=== PATIENT | female | born 1995 | race African-American/Black ===

== ENCOUNTER 2016-02-16 13:20 | Emergency (ER) | payer SELFPAY ==
[~2016-02-16] VITALS: Ht 154.9 cm; Wt 88.0 kg
[~2016-02-16 13:20] MED LIST: MAGICADU2 SWISH-SPIT; PROM25TA5 PO
[2016-02-16 13:23] VITALS: BP 105/72; PULSE 77; RESP 16; TEMP 97.9; O2SAT 100
[2016-02-16] MEDS ORDERED: CORT1SOL RIGHT EAR (13:50)
--- NOTE | 2016-02-16 13:50 | PD ---
HPI Chief Complaint: ENT Complaint Time Seen by Provider: 13:47 Travel History International Travel<30 days: No Contact w/Intl Traveler<30days: No Traveled to known affect area: No History of Present Illness HPI Patient comes in complaining of right ear pain ongoing for approximately 2 weeks. Describes pain as burning like in nature is worse with palpation or pressure. Patient denies any radiation of the pain. Patient is using over-the- counter eardrops as well as an ointment near the opening of the auditory canal with minimal to no relief of her symptoms. Denies any fevers, neck pain, difficulty swallowing, or known fevers. 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 SKIN: Warm and dry. HEAD: Atraumatic. Normocephalic. EYES: Pupils equal and round. EOMI. No scleral icterus. No injection or drainage. ENT: No nasal bleeding or discharge. Mucous membranes pink and moist. Mild edema and erythematous to the right auditory canal. There is reproducible pain with tugging of the right auricle and tragus. There is no foreign body noted. Tympanic membranes are pearly ortiz bilaterally. NECK: Trachea midline. No cervical lymphadenopathy. Supple. No nuclear rigidity. RESPIRATORY: No accessory muscle use. No respiratory distress. MUSCULOSKELETAL: No obvious deformities. No clubbing. No cyanosis. No edema. Full range of motion. NEUROLOGICAL: Awake and alert. No obvious cranial nerve deficits. Motor grossly within normal limits. Normal speech. PSYCHIATRIC: Appropriate mood and affect; insight and judgment normal. Data Data Last Documented VS Vital Signs Date Time Temp Pulse Resp B/P Pulse Ox O2 Delivery O2 Flow Rate FiO2 1/7/17 13:23 97.9 77 16 105/72 100 Room Air MDM Medical Decision Making Medical Screen Exam Complete: Yes Emergency Medical Condition: Yes Differential Diagnosis Otitis media, otitis externa, otalgia, other Narrative Course The patient presented with ear pain. History and examination revealed evidence of otitis externa. There was no significant swelling of the canal nor significant debris. No clinical evidence by history or evaluation to suspect meningitis and/or sepsis, nor malignant OE or mastoiditis. I discussed with the patient, diagnosis, plan of care and to follow up with the patients primary physician within the next week. The patient was discharged on otic antibiotic drops. The patient was instructed to not swim or submerge head in bath or shower , or any other activity that would allow water into canal until cleared by their physician. The patient was instructed to return if worsens in anyway, especially if increased pain, develop fever, worsening headache, neck pain or as needed. The patient agreed with plan. Patient in no obvious distress upon re-evaluation. Patient was asked if they wanted to speak to my attending, which the patient did not wish to do at this time. Any questions/concerns in reference to patient diagnosis/condition discussed and clarified prior to patient's discharge. Reinforced sheer importance of close follow up with patient's primary physician or primary care clinic. Instructed patient to return to ED immediately, if symptoms return/ worsen. Pt showed understanding of above instructions. Further instructions and recommendations were detailed in discharge paperwork. Pt ambulated without difficulty out of ED at discharge. Diagnosis Primary Impression: Otitis externa of right ear Qualified Code: H60.501 - Acute otitis externa of right ear, unspecified type Patient Instructions: General Instructions, Otitis Externa (ED) Additional Instructions: Follow-up with your primary care physician in 3-5 days for evaluation. Take all medication as prescribed. Return to the emergency department if symptoms get worse. Med/Other Pt SpecificInfo: Prescription(s) given Scripts Jcrqdjxs-Ccuqzszwp-RD Otic Drops (Cortisporin HC Otic Drops)3.5-10,000-1 Mg- Units-% Soln4 Drop RIGHT EAR QID #1 BOTTLE Ref 0 Prov:Tanisha Downing MD 02/16/16 Disposition: 01 DISCHARGE HOME Condition: Stable Tyler Portillo Feb 16, 2016 13:50
[2016-05-06] MEDS ORDERED: METR0.7528 VAGINAL (11:59)
[2016-05-06] MEDS ORDERED: PREN1CHW7 PO (11:59)
[2016-05-13] MEDS ORDERED: AZIT1POW PO (14:46)
[2016-05-13] MEDS ORDERED: TERC.4%V VAGINAL (14:46)
[2016-05-13] MEDS ORDERED: MACR100C2 PO (16:43)
[2016-05-13] MEDS ORDERED: FERRTAB2 PO (16:43)
[2016-07-22] MEDS ORDERED: [UNRECOGNIZED DRUG - CODE] PO (09:21)
[2016-07-22] MEDS ORDERED: CEPH-459 PO (11:03)
== END 2016-02-16 14:10 | disposition home or self-care (01) ==
LOC: NEPB 13:20
DX: H60.91 Unspecified otitis externa, right ear (principal); Z72.0 Tobacco use
CPT/HCPCS: 99282

== ENCOUNTER 2016-05-09 09:05 | Emergency (ER) | payer MEDICAID ==
[~2016-05-09 09:05] MED LIST changes: -MAGICADU2 SWISH-SPIT; +METR0.7528 VAGINAL; +PREN1CHW7 PO; -PROM25TA5 PO
--- NOTE | 2016-05-09 09:40 | PD ---
HPI Chief Complaint Decreased movements Date Seen: May 09, 2016 Time Seen: 09:25 (David Staples MD R1) Travel History International Travel<30 Days: No Contact w/Intl Traveler<30Days: No Known Affected Area: No (David Staples MD R1) History of Present Illness HPI Patient is a 20 year old at 23/5 weeks gestation presents to OB ED with the concern of no movements for the past day and a half. She denies any LOF or VB. Denies contractions. Denies urinary symptoms. She has no other complaints. : 2 Miscarriage: 1 (David Staples MD R1) HPI She reports she is now feeling normal movement. (Vicenta Jackson MD) History Past Medical History Medical History: Denies Significant Hx (David Staples MD R1) Obstetric History Obstetric History First resulting in IUFD at 25/6 weeks gestation induced delivery on (David Staples MD R1) Past Surgical History Surgical History: No Previous Surgery (David Staples MD R1) Family History Family History: Negative (David Staples MD R1) Social History Alcohol Use: No Tobacco Use: No Substance Abuse: No (David Staples MD R1) Allergies-Medications (Allergen,Severity, Reaction): Coded Allergies: *MDRO Multi-Drug Resistant Organism (Verified Allergy, Unknown, 05/09/16) MRSA 2013 Home Meds Active Scripts Vit W/ Ferric Phospha (Vitafol Gummies 3.33-0.333-34.8 mg)1 Chw Chw1 Chew PO DAILY #30 BOTTLE Ref 11 Prov:Yola Sánchez CNM [employer] 05/06/16 Metronidazole Vaginal Gel (Metrogel Vaginal Gel)0.75 % Gel1 Appl VAGINAL HS #1 TUBE Ref 0 Prov:Yola Sánchez CNM [employer] 05/06/16 Discontinued Scripts Dpafgzdf-Ocpdrcrrp-PD Otic Drops (Cortisporin HC Otic Drops)3.5-10,000-1 Mg- Units-% Soln4 Drop RIGHT EAR QID #1 BOTTLE Ref 0 Prov:Tanisha Downing MD 02/16/16 Review of Systems Except as stated in HPI: all other systems reviewed are Neg (David Staples MD R1) Physical Exam Narrative GENERAL: Well-nourished, well-developed patient. SKIN: Warm and dry. HEAD: Normocephalic and atraumatic. EYES: No scleral icterus. No injection or drainage. ENT: No nasal drainage noted. Mucous membranes pink. Airway patent. NECK: Supple, trachea midline. No JVD. CARDIOVASCULAR: Regular rate and rhythm without murmurs, gallops, or rubs. RESPIRATORY: Breath sounds equal bilaterally. No accessory muscle use. ABDOMEN/GI: Abdomen soft, non-tender, bowel sounds present, no rebound, no guarding Gravid to 24 weeks size GENITOURINARY: External Genitalia: [-] Cervix: [-] Dilatation: [-] Effacement: [-] Station: [-] Presentation: [-] Membranes: [-] Uterine Contractions: none FHT's: Category: I Baseline: 130s Reactive: yes Variability: mod Decels: none EXTREMITIES: No cyanosis or edema. BACK: Nontender without obvious deformity. No CVA tenderness. NEUROLOGICAL: Awake and alert. Motor and sensory grossly within normal limits. Normal speech. (David Staples MD R1) Data Data Vital Signs Reviewed: Yes (David Staples MD R1) [facility] Medical Record Reviewed: Yes Plan Patient is a 20 year old at 23/5 weeks gestation presented with concern of decreased movement. 1. IUP - Category I tracing, reassuring - No contractions on tocometer - Encouraged oral hydration - Advised to follow up at [facility] clinic for continued care wdw OB Hospitalist (David Staples MD R1) Plan patient evaluated with residents, agree with evaluation and plan. patient feeling good FM. movement precautions. PTL precautions. (Vicenta Jackson MD) Diagnosis Diagnosis: Primary Impression: Intrauterine Disposition: DISCHARGE HOME Condition: Stable Patient Instructions: General Instructions, Movement (ED) David Staples MD R1 May 09, 2016 09:40 Vicenta Jackson MD May 09, 2016 12:04
[2016-05-13] MEDS ORDERED: AZIT1POW PO (14:46)
[2016-05-13] MEDS ORDERED: TERC.4%V VAGINAL (14:46)
[2016-05-13] MEDS ORDERED: MACR100C2 PO (16:43)
[2016-05-13] MEDS ORDERED: FERRTAB2 PO (16:43)
[2016-07-22] MEDS ORDERED: [UNRECOGNIZED DRUG - CODE] PO (09:21)
[2016-07-22] MEDS ORDERED: CEPH-459 PO (11:03)
== END 2016-05-09 10:27 | disposition home or self-care (01) ==
LOC: HOBED 09:05
DX: O26.892 Other specified pregnancy related conditions, second trimester (principal); Z3A.23 23 weeks gestation of pregnancy
CPT/HCPCS: 87641; 99284

== ENCOUNTER 2016-06-12 10:21 | Emergency (ER) | payer MEDICAID ==
[~2016-06-12 10:21] MED LIST changes: +FERRTAB2 PO; -METR0.7528 VAGINAL
[2016-06-12] MEDS ORDERED: SIMETHICONE 80 MG CHEWABLE TAB CHEW ONE (11:30)
[2016-06-12] MEDS ORDERED: ONDANSETRON ODT 4 MG TAB PO ONE (11:30)
--- NOTE | 2016-06-12 11:48 | PD ---
HPI Chief Complaint abdominal pain Date Seen: June 12, 2016 Travel History International Travel<30 Days: No Contact w/Intl Traveler<30Days: No History of Present Illness HPI Ms. Jackson is a 21 yo patient of [facility] at 28 4/7 weeks who presents with abdominal cramping. Patient reports that she began having abdominal pain last night at approximately midnight; patient states that this is a diffuse/steady pain, 6-7/ 10 in severity, which is cramping in nature. Patient reports that this pain is worse in her left lower quadrant. Patient denies fever or chills. She reports some nausea this morning which is improved; no vomiting. 2 soft, normal BM this morning without presence of blood. Patient also reports cramping pain with urination. Patient reports lower back pain. Patient states that she has not eaten since the onset of her pain. Patient reports mild headache. She does not report chest pain, shortness of breath, leg swelling, or other symptoms. Patient states that her pain is gassy in nature. Patient does not report vaginal bleeding or loss of vaginal fluid. Patient does not report decreased movement. Patient sees [facility] for care. Patient states that she has had reassuring labs/ultrasound. Patient reports history of anemia for which she takes iron supplementation. : 2 Miscarriage: 1 History Past Medical History Narrative Medical Anemia Obstetric History Obstetric History demise at ~20 weeks per patient Past Surgical History Surgical History: No Previous Surgery Family History Narrative Family History Sister- DM Social History Alcohol Use: No Tobacco Use: No Substance Abuse: No Allergies-Medications (Allergen,Severity, Reaction): Coded Allergies: *MDRO Multi-Drug Resistant Organism (Verified Allergy, Unknown, 05/27/16) MRSA 2013 Home Meds Active Scripts Multi-Vit/Iron-Folic Geva-K25-Vsk C (Ferralet)90-1-0.012-120 mg Tab1 Tab PO DAILY #60 BOTTLE Ref 5 Prov:Yola Sánchez CNMP 05/13/16 Vit W/ Ferric Phospha (Vitafol Gummies 3.33-0.333-34.8 mg)1 Chw Chw1 Chew PO DAILY #30 BOTTLE Ref 11 Prov:Yola Sánchez CNMP 05/06/16 Review of Systems General / Constitutional: No: Fever Eyes: No: Blurred Vision HENT: No: Headaches Cardiovascular: No: Chest Pain or Discomfort Respiratory: No: Short of Breath Gastrointestinal: Nausea, Abdominal Pain Genitourinary: Dysuria, No: Urgency Physical Exam HR 81 BP 129/67 Narrative GENERAL: Well-nourished, well-developed patient. SKIN: Warm and dry. HEAD: Normocephalic and atraumatic. EYES: No scleral icterus. No injection or drainage. ENT: No nasal drainage noted. Mucous membranes pink. Airway patent. NECK: Supple, trachea midline. No JVD. CARDIOVASCULAR: Regular rate and rhythm without murmurs, gallops, or rubs. RESPIRATORY: Breath sounds equal bilaterally. No accessory muscle use. EXTREMITIES: No cyanosis or edema. BACK: No CVA tenderness. NEUROLOGICAL: Awake and alert. Motor and sensory function grossly within normal limits. ABDOMEN/GI: Abdomen soft, non-tender, bowel sounds present, no rebound, no guarding Gravid GENITOURINARY: External Genitalia: intact and normal in appearance Cervix: Dilatation: 0 Effacement: 0 Station: -3 Membranes: Intact Uterine Contractions: None FHT's: Category: 1 Baseline: 130 Reactive: Y Variability: Mod Decels: None Data Data Orders Vital Signs (Adult) .ON ADMISSION (06/12/16 11:18) ^ Labor Status (06/12/16 11:18) Urinalysis - C+S If Indicated (06/12/16 11:18) Ondansetron Odt (Zofran Odt) (06/12/16 11:30) Simethicone Chew (Mylicon Chew) (06/12/16 11:30) MDM Medical Record Reviewed: Yes Narrative Course / MDM 21 yo patient of [facility] at 28 4/7 weeks -Abdominal cramping; high suspicion for GI related -Dysuria -Cat 1 rhythm -No contractions on CTG -Cervix closed Plan: -Will give simethicone -Reassured patient regarding nature of pain; advised bland diet -F/U at [facility] routinely Diagnosis Diagnosis: Primary Impression: Abdominal gas pain Additional Impression: 28 weeks gestation of Disposition: 01 DISCHARGE HOME Condition: Stable Patient Instructions: Abdominal Pain in (ED), General Instructions Magrarito Mullins MD R2 June 12, 2016 11:48
[2016-06-12 11:52] LABS: BLOOD, URINE NEG (NEG); COMMENT (UR) CULT NOT INDICATED; CULTURE IF INDICATED CULT NOT INDICATED; GLUCOSE,URINE NEG (NEG); KETONE, URINE NEG (NEG); NITRITE,URINE NEG (NEG); SQUAMOUS EPITHELIAL CELL URINE 1 /hpf (0-5); URINE COLOR LIGHT-YELLOW (YELLW/STRAW)
[2016-06-12] MEDS ORDERED: SIME80CH CHEW (12:04)
[2016-07-22] MEDS ORDERED: [UNRECOGNIZED DRUG - CODE] PO (09:21)
[2016-07-22] MEDS ORDERED: CEPH-459 PO (11:03)
== END 2016-06-12 12:18 | disposition home or self-care (01) ==
LOC: HOBED 10:21
DX: O99.013 Anemia complicating pregnancy, third trimester (principal); R14.1 Gas pain; M54.5 Low back pain; D64.9 Anemia, unspecified; R11.0 Nausea; Z3A.28 28 weeks gestation of pregnancy
CPT/HCPCS: 81001; 99284

== ENCOUNTER 2016-07-28 09:10 | Emergency (ER) | payer MEDICAID ==
[~2016-07-28 09:10] MED LIST changes: +CEPH-459 PO
--- NOTE | 2016-07-28 10:14 | PD ---
HPI Chief Complaint Contractions Date Seen: Jul 28, 2016 (Mirian Wagner MD R2) Travel History International Travel<30 Days: No Contact w/Intl Traveler<30Days: No (Mirian Wagner MD R2) History of Present Illness HPI Patient is 21 year old at 35-1/7 weeks gestation who presents today for contractions. Contractions and cramping started last night and are occurring every 10 minutes. She denies any vaginal bleeding or discharge. No gush or leaking of fluid. Positive movement. care with [facility]. ( Mirian Wagner MD R2) History Past Medical History Medical History: Denies Significant Hx (Mirian Wagner MD R2) Obstetric History Obstetric History demise at 25 weeks gestation (Mirian Wagner MD R2) Past Surgical History Surgical History: No Previous Surgery (Mirian Wagner MD R2) Family History Family History: Negative (Mirian Wagner MD R2) Social History Alcohol Use: No Tobacco Use: No Substance Abuse: No (Mirian Wagner MD R2) Allergies-Medications (Allergen,Severity, Reaction): Coded Allergies: *MDRO Multi-Drug Resistant Organism (Verified Allergy, Unknown, 07/22/16) MRSA 2013 Home Meds Active Scripts Nitrofurantoin Macrocrystal 100 Mg Vbl155 Mg PO BID #14 CAP Ref 0 Prov:Mirian Wagner MD R2 07/28/16 Cephalexin (Keflex)250 Mg Hir205 Mg PO TID #21 CAP Ref 0 Prov:Vicenta Garcia 07/22/16 Multi-Vit/Iron-Folic Xpsd-M88-Cet C (Ferralet)90-1-0.012-120 mg Tab1 Tab PO DAILY #60 BOTTLE Ref 5 Prov:Yola Sánchez CNMP 05/13/16 Vit W/ Ferric Phospha (Vitafol Gummies 3.33-0.333-34.8 mg)1 Chw Chw1 Chew PO DAILY #30 BOTTLE Ref 11 Prov:Yola Sánchez CNMP 05/06/16 Discontinued Scripts Cefadroxil Liq 250 Mg/5 Ml Osyi705 Mg PO TID #105 ML Ref 0 Prov:Vicenta Garcia 07/22/16 Review of Systems Except as stated in HPI: all other systems reviewed are Neg General / Constitutional: No: Fever, Chills Eyes: No: Visual changes HENT: No: Headaches Respiratory: No: Short of Breath Gastrointestinal: Abdominal Pain Genitourinary: Pelvic Pain, No: Dysuria, Discharge, Vaginal Bleeding Musculoskeletal: No: Edema Neurologic: No: Headache Psychiatric: No: Substance Abuse (Mirian Wagner MD R2) Physical Exam Narrative GENERAL: Well-nourished, well-developed patient. SKIN: Warm and dry. HEAD: Normocephalic and atraumatic. EYES: No scleral icterus. No injection or drainage. ENT: No nasal drainage noted. Mucous membranes pink. Airway patent. NECK: Supple, trachea midline. No JVD. CARDIOVASCULAR: Regular rate and rhythm without murmurs, gallops, or rubs. RESPIRATORY: Breath sounds equal bilaterally. No accessory muscle use. ABDOMEN/GI: Abdomen soft, non-tender, bowel sounds present, no rebound, no guarding Gravid to 35 weeks size GENITOURINARY: External Genitalia: intact and normal in appearance BUS glands: normal Cervix: posterior Dilatation: 3-4 Effacement: 50 Station: -2 Presentation: vertex Membranes: intact Uterine Contractions: q3-5min FHT's: Category: I Baseline: 130 Reactive: + Variability: moderate Decels: none EXTREMITIES: No cyanosis or edema. BACK: Nontender without obvious deformity. No CVA tenderness. NEUROLOGICAL: Awake and alert. Motor and sensory grossly within normal limits. Normal speech. (Mirian Wagner MD R2) Data Data Vital Signs Reviewed: Yes Orders Vital Signs (Adult) .ON ADMISSION (07/28/16 09:59) ^ Labor Status (07/28/16 09:59) ^ Non Stress Test (07/28/16 09:59) ^ Hydration (07/28/16 09:59) Urinalysis - C+S If Indicated (07/28/16 09:59) (Mirian Wagner MD R2) MDM Medical Record Reviewed: Yes Narrative Course / MDM 21 year old at 35-1/7 weeks gestation. 1. IUP- Category I tracing, reassuring. 2. Contractions- Possible labor, will continue to monitor for cervical change. IV LR. josew Dr. Haddox Addendum: Variable heart rate deceleration for 45 seconds down to the 60's was noted. Otherwise Category I tracing. BPP 8/8. Patient was kept for another 2 hours of heart tracing and tracing was reassuring with continued Category I tracing. UA significant for moderate bacteria and leukocyte esterace. Will treat acute cystitis with Macrobid 100mg PO BID x 7 days. Patient is discharge to home. Follow-up with [facility]. (Mirian Wagner MD R2) Diagnosis Diagnosis: Primary Impression: contractions Additional Impression: Acute cystitis during in third trimester Disposition: 01 DISCHARGE HOME Condition: Stable Scripts Nitrofurantoin Macrocrystal 100 Mg Uns801 Mg PO BID #14 CAP Ref 0 Prov:Mirian Wagner MD R2 07/28/16 Collaborating MD Comments Patient seen and examined multiple times today. Discussed care with patient and agree with discharge given the reassuring status of the baby and 8/8 BPP ( Meg Sanders MD) Mirian Wagner MD R2 Jul 28, 2016 10:14 Meg Sanders MD Jul 29, 2016 08:29
[2016-07-28] MEDS ORDERED: LACTATED RINGER'S 1000 ML INJ 1,000 ML IV SCH (11:00)
[2016-07-28 13:44] LABS: BACTERIA, URINE MOD /hpf; BLOOD, URINE NEG (NEG); GLUCOSE,URINE NEG (NEG); KETONE, URINE NEG (NEG); MUCUS URINE FEW /lpf (OCC); NITRITE,URINE NEG (NEG); PH, URINE 6.5 (5.0-8.5); SQUAMOUS EPITHELIAL CELL URINE 2 /hpf (0-5); URINE COLOR YELLOW (YELLW/STRAW)
[2016-07-28 13:45] LABS: COMMENT (UR) CULTURE INDICATED; CULTURE IF INDICATED CULTURE INDICATED
[2016-07-28] MEDS ORDERED: NITR1CAP36 PO (14:41)
== END 2016-07-28 14:56 | disposition home or self-care (01) ==
LOC: HOBED 09:10
DX: O26.893 Other specified pregnancy related conditions, third trimester (principal); O23.13 Infections of bladder in pregnancy, third trimester; R10.30 Lower abdominal pain, unspecified; Z3A.35 35 weeks gestation of pregnancy
CPT/HCPCS: 59025; 76816; 76819; 81001; 87086

== ENCOUNTER 2016-08-14 09:24 | Inpatient (IN) | payer MEDICAID ==
[2016-08-14] VITALS (52 sets, daily range): BP systolic 103–140; BP diastolic 41–103; PULSE 49–130; RESP 16–18; TEMP 98–98.3; O2SAT 94–100
[2016-08-14] MEDS ORDERED: LACTATED RINGER'S 1000 ML INJ 1,000 ML IV PRN (09:57)
[2016-08-14] MEDS ORDERED: MINERAL OIL 10 ML VIAL TOPICAL PRN (10:00)
[2016-08-14] MEDS ORDERED: SODIUM CHLORID 0.9% 500 ML INJ 500 ML IV PRN (10:00)
[2016-08-14] MEDS ORDERED: OXYTOCIN 30 UNITS-500ML PREMIX 500 ML IV ONE (10:00)
[2016-08-14] MEDS ORDERED: LIDOCAINE HCL 1% 50 ML VIAL I-DERMAL PRN (10:00)
[2016-08-14] MEDS ORDERED: LIDOCAINE HCL 1% 50 ML VIAL INFIL PRN (10:00)
[2016-08-14] MEDS ORDERED: CITRIC ACID-SODIUM CITRATE LIQ 30 ML UDC PO SCH (10:00)
[2016-08-14] MEDS ORDERED: SODIUM CHLOR 0.9% 1000 ML INJ 1,000 ML IV PRN (10:17)
--- NOTE | 2016-08-14 10:36 | HHI.HP ---
History & Physical H&P HPI HPI Chief Complaint Contractions Date Seen: Aug 14, 2016 Time Seen: 09:50 Travel History International Travel<30 Days: No Contact w/Intl Traveler<30Days: No History of Present Illness HPI 21-year-old at 37/4 weeks gestation presenting with contractions. Contractions started about 6 AM this morning and were about every 5-6 minutes apart. They're very intense, but after about an hour they ceased. Then an hour after stopping, contractions resumed and were again intense and 5-6 minutes apart. Patient was 3-4 cm dilated a few days ago. She denies vaginal bleeding, leakage of fluid/rupture of membranes, and she feels normal movement. Denies chest pain, shortness of breath, nausea/vomiting, dysuria. History (Limited) History Past Medical History Medical History: Denies Significant Hx Obstetric History Obstetric History , previous delivered vaginally Past Surgical History Surgical History: No Previous Surgery Family History Family History: Negative Social History Alcohol Use: No Tobacco Use: No Substance Abuse: No Allergies-Medications Allergies-Medications (Allergen,Severity, Reaction): Coded Allergies: *MDRO Multi-Drug Resistant Organism (Verified Allergy, Unknown, 07/22/16) MRSA 2013 Home Meds Active Scripts Cephalexin (Keflex)250 Mg Ngg839 Mg PO TID #21 CAP Ref 0 Prov:Vicenta Garcia 07/22/16 Multi-Vit/Iron-Folic Isfu-P00-Oeu C (Ferralet)90-1-0.012-120 mg Tab1 Tab PO DAILY #60 BOTTLE Ref 5 Prov:Yola Sánchez CNMP 05/13/16 Vit W/ Ferric Phospha (Vitafol Gummies 3.33-0.333-34.8 mg)1 Chw Chw1 Chew PO DAILY #30 BOTTLE Ref 11 Prov:Yola Sánchez CNM [facility] 05/06/16 ROS Review of Systems Except as stated in HPI: all other systems reviewed are Neg Physical Exam Physical Exam Narrative GENERAL: Well-nourished, well-developed patient. SKIN: Warm and dry. HEAD: Normocephalic and atraumatic. EYES: No scleral icterus. No injection or drainage. ENT: No nasal drainage noted. Mucous membranes pink. Airway patent. NECK: Supple, trachea midline. No JVD. CARDIOVASCULAR: Regular rate and rhythm without murmurs, gallops, or rubs. RESPIRATORY: Breath sounds equal bilaterally. No accessory muscle use. BREASTS: Bilateral exam showed no masses , no retractions, no nipple discharge. ABDOMEN/GI: Abdomen soft, non-tender, bowel sounds present, no rebound, no guarding GENITOURINARY: Cervix: midposition Dilatation: 4-5 cm Effacement: 70% Station: -1 Presentation: Vertex Membranes: Intact Uterine Contractions: Scroggins every 4-5 mins, not detected on external monitor FHT's: Category: 1 Baseline: 115 Reactive: Y Variability: moderate Decels: N EXTREMITIES: No cyanosis or edema. BACK: Nontender without obvious deformity. No CVA tenderness. NEUROLOGICAL: Awake and alert. Motor and sensory grossly within normal limits. Normal speech. Data Data Data Vital Signs Reviewed: Yes Orders Admit To Inpatient (08/14/16 ) Vital Signs (Adult) .Per protocol (08/14/16 09:57) Heart (08/14/16 09:57) Amnioinfusion (08/14/16 09:57) Urinary Catheter Management .ONCE (08/14/16 09:57) Diet Liquid (08/14/16 Breakfast) Lactated Ringer's 1000 Ml Inj (Lr 1000 M (08/14/16 09:57) Lactated Ringer's 1000 Ml Inj (Lr 1000 M (08/14/16 09:57) Sodium Chlorid 0.9% 500 Ml Inj (Ns 500 M (08/14/16 10:00) Sodium Chlor 0.9% 1000 Ml Inj (Ns 1000 M (08/14/16 10:17) Lidocaine 1% Inj (50 Ml) (Xylocaine 1% I (08/14/16 10:00) Citric Acid-Sodium Citrate Liq (Bicitra (08/14/16 10:00) Fentanyl Inj (Fentanyl Inj) (08/14/16 10:00) Fentanyl Inj (Fentanyl Inj) (08/14/16 10:00) Complete Blood Count With Diff (08/14/16 09:57) Hold Clot (08/14/16 09:57) Abo/Rh Blood Type (08/14/16 09:57) Urinalysis - C+S If Indicated (08/14/16 09:57) Resp Oxygen Non Rebreathe Mask (08/14/16 ) ^ Epidural / Intrathecal Infus (08/14/16 09:57) Oxytocin 30 Units-500ml Premix (Pitocin (08/14/16 10:00) Lidocaine 1% Inj (50 Ml) (Xylocaine 1% I (08/14/16 10:00) Light Mineral Oil (Muri-Lube Oil) (08/14/16 10:00) Inpatient Certification (08/14/16 ) MDM MDM Medical Record Reviewed: Yes Narrative Course / MDM 21-year-old at 37/4 weeks gestation presenting in active labor #1 IUP Category 1 tracing, reassuring - Continuous monitoring #2 GBS negative No need for intrapartum antibiotic prophylaxis #3 labor Has not ruptured membranes at. Making cervical change. - Admit to labor and delivery - Routine antepartum care - Epidural if patient desires Diagnosis Diagnosis: Primary Impression: Normal labor Nikunj Williamson MD R1 Aug 14, 2016 10:36
[2016-08-14 11:48] LABS: AUTOMATED NEUTROPHIL # 6.7 TH/MM3 (1.8-7.7); BASOPHIL % 0.2 % (0.0-2.0); EOSINOPHIL # 0.3 TH/MM3 (0-0.4); EOSINOPHIL % 2.7 % (0.0-4.0); HEMATOCRIT 36.3 % (35.0-46.0); HEMO FLAGS DIFF FINAL; LYMPH % 23.3 % (9.0-44.0); LYMPHOCYTE # 2.4 TH/MM3 (1.0-4.8); MEAN CELL VOLUME 72.4 FL (80.0-100.0); MEAN CORPUSCULAR HEMOGLOBIN 23.4 PG (27.0-34.0); MEAN CORPUSCULAR HGB CONC 32.4 % (32.0-36.0); MONO % 8.7 % (0.0-8.0); NEUT % 65.1 % (16.0-70.0); PLATELET COUNT 229 TH/MM3 (150-450); RED BLOOD COUNT 5.02 MIL/MM3 (4.00-5.30); RED CELL DISTRIBUTION WIDTH 15.1 % (11.6-17.2); WHITE BLOOD COUNT 10.2 TH/MM3 (4.0-11.0)
[2016-08-14 11:55] LABS: BACTERIA, URINE RARE /hpf; BLOOD, URINE NEG (NEG); GLUCOSE,URINE NEG (NEG); KETONE, URINE NEG (NEG); MUCUS URINE FEW /lpf (OCC); NITRITE,URINE NEG (NEG); PH, URINE 7.5 (5.0-8.5); URINE COLOR YELLOW (YELLW/STRAW)
[2016-08-14 11:56] LABS: COMMENT (UR) CULT NOT INDICATED; CULTURE IF INDICATED CULT NOT INDICATED
--- NOTE | 2016-08-14 13:12 | PD.LABORPN ---
Subjective Subjective Is 37-38 weeks who came in pati this morning at the 10:00, membranes intact no bleeding, heart rate tracing is reactive, the time was pati more that she is now. Contractions spaced out of she's not really in pain. The patient states she had a contraction 7 minutes ago and was uncomfortable. I just checked patient's cervix she's 4/ 40%/ -3 very high , and this is not unusual just a typical multiparous cervix in the last 3-4 weeks of without significant effacement I do not believe the patient is truly in labor and I offered the patient to go home and come back when contractions get stronger, however she did not want to do that ,she will stay here in L&D today and see what happens. Since she's not even 38 weeks not even term I would just leave her alone not try and augment her at this stage, I would just give her time to go into labor if she is to do that today and tonight in the morning if she still the same she is going home Objective Vital Signs Vital Signs Date Time Temp Pulse Resp B/P Pulse Ox O2 Delivery O2 Flow Rate FiO2 08/14/16 11:30 75 116/73 08/14/16 11:00 18 Objective Pelvic Exam: Cervix: [-] Dilatation: [-] Effacement: [-] Station: [-] Presentation: [-] Membranes: [intact or ruptured] Uterine Contractions: [-] FHT's: Category: [-] Baseline: [-] Reactive: [-] Variability: [-] Decels: [-] Vikas Coughlin II, MD Aug 14, 2016 13:12
[2016-08-14] MEDS: LACTATED RINGER'S 1000 ML INJ 1,000 ML IV SCH ×2 (15:37→23:30)
[2016-08-14] MEDS ORDERED: fentaNYL 2MCG-BUPIV 0.125% INJ 100 ML ONE (21:08)
[2016-08-14] MEDS ORDERED: ePHEDrine/NS 25 MG/5 ML SYR IV PRN (22:00)
[2016-08-14] MEDS ORDERED: DO NOT ADMINISTER ANTICOAGULANTS PRN (22:00)
[2016-08-14] MEDS ORDERED: fentaNYL 2MCG-BUPIV 0.125% 100 ML EPIDURAL SCH (22:00)
[2016-08-14] MEDS ORDERED: NO SYSTEM NARCOTICS PRN (22:00)
--- NOTE | 2016-08-14 22:17 | PD.LABORPN ---
Subjective Subjective Patient resting comfortably in bed with epidural in place. Objective Vital Signs Vital Signs Date Time Temp Pulse Resp B/P Pulse Ox O2 Delivery O2 Flow Rate FiO2 08/14/16 20:36 74 140/82 08/14/16 20:30 18 08/14/16 20:12 99 132/95 08/14/16 19:00 18 08/14/16 18:36 84 117/72 08/14/16 18:35 102 135/103 08/14/16 18:30 18 08/14/16 18:30 98.0 08/14/16 15:02 73 124/74 08/14/16 15:00 18 08/14/16 15:00 98.0 Objective Pelvic Exam: Cervix: midposition Dilatation: 8 Effacement: 100 Station: -1 Presentation: vertex Membranes: AROM, meconium Uterine Contractions: q3-4min FHT's: Category: I Baseline: 120 Reactive: + Variability: moderate Decels: none Assessment/Plan Assessment and Plan 21 year old at 37-4/7 weeks gestation. 1. IUP- Category I tracing, reassuring. 2. Labor- cervical change noted, AROM with meconium fluid 3. GBS negative 4. Anticipate sdw Dr. Coughlin and Mirian Marcelino MD R2 Aug 14, 2016 22:17
[2016-08-15] VITALS (32 sets, daily range): BP systolic 90–146; BP diastolic 59–94; PULSE 87–129; RESP 14–18; TEMP 97.6–98.7; O2SAT 100
[2016-08-15] MEDS ORDERED: OXYTOCIN 30 UNITS-500ML PREMIX 500 ML ONE (01:36)
--- NOTE | 2016-08-15 01:53 | PD.OB.DELI ---
Delivery Date: Aug 15, 2016 Anesthesia: Epidural Episiotomy: None Vaginal Delivery: Normal Presentation: Occiput anterior, Compound (compound right hand ) Nuchal Cord: None Delayed cord clamping (45 sec): No : Female One Minute : 9 Five Minute : 9 Weight: 2205 g Placenta: Spontaneous delivery, Intact, 3 vessel cord Laceration: 1 deg (right periuretral region ) Additional Information Estimated blood loss 250 cc, supervised by Dr. Coughlin and Dionne Mitchell MD Aug 15, 2016 01:53
[2016-08-15] MEDS ORDERED: WITCH HAZEL 50%/GLYCERIN 12.5% 40 PAD JAR TOPICAL PRN (02:00)
[2016-08-15] MEDS ORDERED: oxyCODONE/ACETAMINOPHEN 5 MG/325 MG TAB PO PRN (02:00)
[2016-08-15] MEDS ORDERED: ALUMINUM/MAGNESIUM/SIMETH 30 ML CUP PO PRN (02:00)
[2016-08-15] MEDS ORDERED: BENZOCAINE 20% TOPICAL SPRAY 60 ML CAN TOPICAL PRN (02:00)
[2016-08-15] MEDS ORDERED: ONDANSETRON ODT 4 MG TAB PO PRN (02:00)
[2016-08-15] MEDS ORDERED: DOCUSATE SODIUM 50 MG/SENNA 8.6 MG TAB PO PRN (02:00)
[2016-08-15] MEDS ORDERED: SODIUM CHLORIDE 0.9% FLUSH 10 ML FLUSH IV FLUSH PRN (02:00)
[2016-08-15] MEDS ORDERED: ZOLPIDEM TARTRATE 5 MG TAB PO PRN (02:00)
[2016-08-15] MEDS: IBUPROFEN 600 MG TAB PO PRN ×3 (07:59→21:41)
[2016-08-15] MEDS: ACETAMINOPHEN 325 MG TAB PO PRN ×2 (08:00→14:38)
[2016-08-15] MEDS ORDERED: SODIUM CHLORIDE 0.9% FLUSH 10 ML FLUSH IV FLUSH SCH (09:00)
--- NOTE | 2016-08-15 11:25 | HHI.OB ---
Subjective Post Day: 0 Remarks 21 year old female s/p at 37/4 wks gestation and is PPD0. AFVSS . Patient reports she is feeling well. Bleeding is decreasing and pain is well-controlled. She is breast feeding and bonding well with baby. Ambulating without difficulties. She is tolerating a diet without nausea or vomiting. She has not had a bowel movement. She has passed gas. Denies chest pain, dysuria, shortness of breath, or calf pain. Objective Vitals/I&O Vital Signs Date Time Temp Pulse Resp B/P Pulse Ox O2 Delivery O2 Flow Rate FiO2 08/15/16 08:30 87 16 08/15/16 08:00 97.6 114/79 08/15/16 04:05 98.4 08/15/16 04:05 125/77 08/15/16 04:05 96 14 08/15/16 03:18 102 126/71 08/15/16 03:16 98.3 18 08/15/16 02:45 16 08/15/16 02:43 100 126/69 08/15/16 02:31 113 113/94 08/15/16 02:30 16 08/15/16 02:18 98 90/59 08/15/16 01:50 18 08/15/16 01:50 98.7 08/15/16 01:46 108 139/76 08/15/16 01:35 18 08/15/16 01:30 116 146/87 08/15/16 01:25 108 08/15/16 01:25 100 08/15/16 01:20 101 08/15/16 01:20 100 08/15/16 01:20 18 08/15/16 01:15 112 133/64 08/15/16 01:15 114 08/15/16 01:05 18 08/15/16 01:05 129 08/15/16 01:00 101 08/15/16 01:00 98 123/72 08/15/16 00:55 102 08/15/16 00:50 107 08/15/16 00:50 18 08/15/16 00:45 105 08/15/16 00:45 100 137/76 08/15/16 00:40 97 08/15/16 00:35 104 08/15/16 00:30 16 08/15/16 00:30 92 124/67 08/15/16 00:30 104 08/15/16 00:25 91 08/15/16 00:20 100 08/15/16 00:15 101 08/15/16 00:15 103 08/15/16 00:15 125/66 08/15/16 00:10 98 08/15/16 00:05 112 08/15/16 00:01 92 112/62 08/15/16 00:00 87 08/14/16 23:55 98 08/14/16 23:55 98 08/14/16 23:50 92 08/14/16 23:50 92 08/14/16 23:45 101 133/83 08/14/16 23:45 99 08/14/16 23:45 133/83 08/14/16 23:45 99 08/14/16 23:40 87 08/14/16 23:40 87 08/14/16 23:36 18 08/14/16 23:35 89 100 08/14/16 23:30 83 08/14/16 23:30 81 124/58 100 08/14/16 23:25 87 08/14/16 23:20 90 08/14/16 23:15 96 128/69 08/14/16 23:15 79 08/14/16 23:13 18 08/14/16 23:10 92 08/14/16 23:05 86 08/14/16 23:00 81 08/14/16 23:00 16 08/14/16 23:00 101 121/74 08/14/16 22:55 100 08/14/16 22:55 81 08/14/16 22:50 94 08/14/16 22:50 72 08/14/16 22:45 100 08/14/16 22:45 86 114/64 08/14/16 22:45 78 08/14/16 22:40 88 08/14/16 22:40 100 08/14/16 22:35 100 08/14/16 22:35 86 08/14/16 22:31 97 109/41 08/14/16 22:30 84 08/14/16 22:30 100 08/14/16 22:30 98.3 08/14/16 22:25 87 08/14/16 22:25 87 08/14/16 22:20 87 08/14/16 22:20 87 08/14/16 22:17 18 08/14/16 22:16 130 103/68 08/14/16 22:15 89 08/14/16 22:10 97 08/14/16 22:05 76 08/14/16 22:00 83 08/14/16 22:00 16 08/14/16 22:00 76 132/84 08/14/16 21:56 76 134/67 08/14/16 21:55 77 08/14/16 21:50 96 131/61 08/14/16 21:50 95 08/14/16 21:45 88 08/14/16 21:45 95 131/62 08/14/16 21:40 90 127/68 08/14/16 21:40 81 08/14/16 21:37 81 126/76 08/14/16 21:35 98 129/72 08/14/16 21:35 79 08/14/16 21:31 98 134/92 08/14/16 21:30 49 08/14/16 21:30 16 08/14/16 21:25 93 08/14/16 21:20 98 138/73 08/14/16 21:15 18 08/14/16 21:00 16 08/14/16 20:36 74 140/82 08/14/16 20:30 18 08/14/16 20:12 99 132/95 08/14/16 19:00 18 08/14/16 18:36 84 117/72 08/14/16 18:35 102 135/103 08/14/16 18:30 18 08/14/16 18:30 98.0 08/14/16 15:02 73 124/74 08/14/16 15:00 18 08/14/16 15:00 98.0 08/14/16 11:30 75 116/73 Objective Remarks GENERAL: WDWN resting comfortably in bed. CARDIOVASCULAR: Regular rate and rhythm without murmurs, gallops, or rubs. RESPIRATORY: Breath sounds equal bilaterally w/no increased WOB. No accessory muscle use. ABDOMEN/GI: Abdomen soft, appropriately tender. Fundus: Firm, non-tender at umbilicus. GENITOURINARY: Light to moderate bleeding. EXTREMITIES: No cyanosis or edema, non-tender, without signs of DVT. Medications and IVs Current Medications Medications (Trade) Dose Ordered Sig/Anselmo Route Start Time Stop Time Status Last Admin (NS Flush) 2 ml BID IV FLUSH 08/15/16 09:00 (NS Flush) 2 ml UNSCH PRN IV FLUSH 08/15/16 02:00 (Tylenol) 650 mg Q4H PRN PO 08/15/16 02:00 08/15/16 08:00 (Motrin) 600 mg Q6H PRN PO 08/15/16 02:00 08/15/16 07:59 (Percocet 5-325 Mg) 1 tab Q4H PRN PO 08/15/16 02:00 (Percocet 5-325 Mg) 2 tab Q4H PRN PO 08/15/16 02:00 (Americaine 20% Top Spr) 1 spray Q4H PRN TOPICAL 08/15/16 02:00 (Tucks Pads) 1 applic QID PRN TOPICAL 08/15/16 02:00 (Rosy-Colace) 2 tab Q12H PRN PO 08/15/16 02:00 (Ambien) 5 mg HS PRN PO 08/15/16 02:00 (M-M-R Ii Inj) 0.5 ml ONCE ONCE SQ 08/15/16 16:00 08/15/16 16:01 (Boostrix Inj) 0.5 ml ONCE ONCE IM 08/15/16 16:00 08/15/16 16:01 (Mag-Al Plus Susp Liq) 15 ml Q8H PRN PO 08/15/16 02:00 (Zofran Odt) 4 mg Q6H PRN PO 08/15/16 02:00 Assessment/Plan Assessment and Plan 21 yo female s/p at 37/4 and is POD0. - AFVSS - Continue routine care - Motrin and Percocet PRN pain - Encourage OOB - Pelvic rest x 6 wks - Contraception: TBD - Anticipate D/C 08/16 or 08/17 Dispo: home Discharge Planning home Eric Marvin MD R1 Aug 15, 2016 11:25 Eric Marvin MD R1 Aug 15, 2016 11:25
[2016-08-15] MEDS ORDERED: IBUP-232 PO (14:02)
--- NOTE | 2016-08-15 14:04 | HHI.DCPOC ---
Discharge Care Plan Diagnosis: (1) Normal vaginal delivery Report Symptoms to Your Doctor -Temperature above 100.5 degrees -Redness, of incision or excessive or foul smelling drainage -Unusual pain or calf pain -Increased vaginal bleeding -Painful or difficulty urinating -Feelings of extreme sadness or anxiety after 2 weeks Goals to Promote Your Health * To prevent worsening of your condition and complications * To maintain your health at the optimal level Directions to Meet Your Goals Take your medications as prescribed Follow your dietary instruction Follow activity as directed Ensure plenty of rest for recovery Drink fluids for hydration Keep your appointments as scheduled Take your immunizations and boosters as scheduled If your symptoms worsen call your PCP, if no PCP go to Urgent Care Center or Emergency Room Smoking is Dangerous to Your Health. Avoid second hand smoke Call the 24-hour crisis hotline for domestic abuse at Eric Marvin MD R1 Aug 15, 2016 14:04
[2016-08-15] MEDS ORDERED: MEASLES, MUMPS, RUBELLA VACCINE 0.5 ML VIAL SQ ONE (16:00)
[2016-08-15] MEDS ORDERED: DIPHTH/TETANUS/ACEL PERTUSSIS (BOOSTER) 0.5 ML VIAL/PFS IM ONE (16:00)
[2016-08-15 18:27] LABS: AMPHETAMINE, URINE NEG (NEG); BARBITURATES, URINE NEG (NEG); COCAINE, URINE NEG (NEG)
[2016-08-15] MEDS: oxyCODONE/ACETAMINOPHEN 5 MG/325 MG TAB PO PRN (21:42)
[2016-08-16] MEDS: oxyCODONE/ACETAMINOPHEN 5 MG/325 MG TAB PO PRN ×5 (04:11→23:18)
[2016-08-16] MEDS: IBUPROFEN 600 MG TAB PO PRN ×4 (04:11→23:18)
[2016-08-16 08:20] VITALS: BP 113/71; PULSE 75; RESP 18; TEMP 97.9
--- NOTE | 2016-08-16 10:33 | HHI.OB ---
Subjective Post Day: 1 Remarks Pt seen and examined this morning. day # 1 AFVSS overnight. Decreased lochia. Denies dysuria. No breast tenderness. She is feeding the baby via breast and bottle. Appetite good. No nausea or vomiting. Patient endorses no bowel movement, but has positive bowel sounds. Ambulating well. Denies calf pain or shortness of breath. Otherwise, she is doing well this morning and has no other concerns. Objective Vitals/I&O Vital Signs Date Time Temp Pulse Resp B/P Pulse Ox O2 Delivery O2 Flow Rate FiO2 08/16/16 08:20 75 113/71 08/16/16 08:20 97.9 18 Objective Remarks GENERAL: WDWN resting comfortably in bed. CARDIOVASCULAR: Regular rate and rhythm without murmurs, gallops, or rubs. RESPIRATORY: Breath sounds equal bilaterally w/no increased WOB. No accessory muscle use. ABDOMEN/GI: Abdomen soft, appropriately tender. Fundus: Firm, non-tender at umbilicus. GENITOURINARY: Light to moderate bleeding. EXTREMITIES: No cyanosis or edema, non-tender, without signs of DVT. Medications and IVs Current Medications Medications (Trade) Dose Ordered Sig/Anselmo Route Start Time Stop Time Status Last Admin (NS Flush) 2 ml BID IV FLUSH 08/15/16 09:00 (NS Flush) 2 ml UNSCH PRN IV FLUSH 08/15/16 02:00 (Tylenol) 650 mg Q4H PRN PO 08/15/16 02:00 08/15/16 14:38 (Motrin) 600 mg Q6H PRN PO 08/15/16 02:00 08/16/16 04:11 (Percocet 5-325 Mg) 1 tab Q4H PRN PO 08/15/16 02:00 08/16/16 08:22 (Percocet 5-325 Mg) 2 tab Q4H PRN PO 08/15/16 02:00 (Americaine 20% Top Spr) 1 spray Q4H PRN TOPICAL 08/15/16 02:00 (Tucks Pads) 1 applic QID PRN TOPICAL 08/15/16 02:00 (Rosy-Colace) 2 tab Q12H PRN PO 08/15/16 02:00 (Ambien) 5 mg HS PRN PO 08/15/16 02:00 (Mag-Al Plus Susp Liq) 15 ml Q8H PRN PO 08/15/16 02:00 (Zofran Odt) 4 mg Q6H PRN PO 08/15/16 02:00 Assessment/Plan Assessment and Plan 21y/o female who is day # 1 s/p . -Continue routine care. -Motrin PRN pain. -Encouraged OOB. Advised pelvic rest for 6 wks. -Re: ctrl, she would like to discuss her options at her follow-up OB appointment. -Anticipate discharge tomorrow, 08/17. rj Jackson MD Discharge Planning Likely home tomorrow, / Armaan Hitchcock MD R1 Aug 16, 2016 10:33
[2016-08-16 12:30] VITALS: RESP 18
[2016-08-16 14:55] VITALS: RESP 18
[2016-08-17] MEDS: oxyCODONE/ACETAMINOPHEN 5 MG/325 MG TAB PO PRN (05:41)
[2016-08-17] MEDS: IBUPROFEN 600 MG TAB PO PRN ×2 (05:42→11:40)
[2016-08-17 10:05] VITALS: BP 142/87; PULSE 81; RESP 18; TEMP 98.4
--- NOTE | 2016-08-17 10:53 | HHI.OB ---
Subjective Post Day: 2 Remarks Pt seen and examined this morning. day # 2 AFVSS overnight. Decreased lochia. Denies dysuria. No breast tenderness. She is feeding the baby via bottle. Appetite good. No nausea or vomiting. Patient endorses bowel movement and passing gas. Ambulating well. Denies calf pain or shortness of breath. Currently she states that she is having tenderness in lower back pain radiating down both legs related to her epidural placement as well as jaw pain related to possible dental abscess per patient report. Objective Vitals/I&O Vital Signs Date Time Temp Pulse Resp B/P Pulse Ox O2 Delivery O2 Flow Rate FiO2 08/16/16 14:55 18 08/16/16 12:30 18 Objective Remarks GENERAL: WDWN resting comfortably in bed. CARDIOVASCULAR: Regular rate and rhythm without murmurs, gallops, or rubs. RESPIRATORY: Breath sounds equal bilaterally w/no increased WOB. No accessory muscle use. ABDOMEN/GI: Abdomen soft, appropriately tender. Fundus: Firm, non-tender at umbilicus. GENITOURINARY: Light to moderate bleeding. EXTREMITIES: No cyanosis or edema, non-tender, without signs of DVT. Medications and IVs Current Medications Medications (Trade) Dose Ordered Sig/Anselmo Route Start Time Stop Time Status Last Admin (NS Flush) 2 ml BID IV FLUSH 08/15/16 09:00 (NS Flush) 2 ml UNSCH PRN IV FLUSH 08/15/16 02:00 (Tylenol) 650 mg Q4H PRN PO 08/15/16 02:00 08/15/16 14:38 (Motrin) 600 mg Q6H PRN PO 08/15/16 02:00 08/17/16 05:42 (Percocet 5-325 Mg) 1 tab Q4H PRN PO 08/15/16 02:00 08/17/16 05:41 (Percocet 5-325 Mg) 2 tab Q4H PRN PO 08/15/16 02:00 (Americaine 20% Top Spr) 1 spray Q4H PRN TOPICAL 08/15/16 02:00 (Tucks Pads) 1 applic QID PRN TOPICAL 08/15/16 02:00 (Rosy-Colace) 2 tab Q12H PRN PO 08/15/16 02:00 (Ambien) 5 mg HS PRN PO 08/15/16 02:00 (Mag-Al Plus Susp Liq) 15 ml Q8H PRN PO 08/15/16 02:00 (Zofran Odt) 4 mg Q6H PRN PO 08/15/16 02:00 Assessment/Plan Assessment and Plan 21y/o female who is day # 2 s/p . -Continue routine care. -Motrin PRN pain. -When discussing pain management patient becomes agitated and demands Percocet for pain control upon discharge. OB team explained benefits of hydration and pain control with Motrin, however patient still demands Percocet and threatens to perfuse discharge upon discussion. -Encouraged OOB. Advised pelvic rest for 6 wks. -Re: ctrl, she would like to discuss her options at her follow-up OB appointment. -Anticipate discharge today, 08/[address] Corrales, MDs Discharge Planning Patient to be discharged home today, 08/17 Armaan Hitchcock MD R1 Aug 17, 2016 10:53
[2016-08-17] MEDS ORDERED: SENN1TAB PO (11:01)
== END 2016-08-17 13:31 | disposition home or self-care (01) | DRG 775 ==
LOC: HOBED 09:24 → H2EA 11:29 → H1EA 08-15 03:39
PROVIDERS: ADMIT Obstetrics & Gynecology Maternal & Fetal Medicine; ATTEND Obstetrics & Gynecology Maternal & Fetal Medicine
PROC: 10907ZC Drainage of Amniotic Fluid, Therapeutic from Products of Conception, Via Natural or Artificial Opening (ICD-10-PCS; 2016-08-14)
PROC: 3E0S3CZ (ICD-10-PCS; 2016-08-14)
PROC: 00HU33Z Insertion of Infusion Device into Spinal Canal, Percutaneous Approach (ICD-10-PCS; 2016-08-14)
PROC: 10E0XZZ Delivery of Products of Conception, External Approach (ICD-10-PCS; principal; 2016-08-15)
DX: O70.0 First degree perineal laceration during delivery (principal); O32.6XX0 Maternal care for compound presentation, not applicable or unspecified; O75.89 Other specified complications of labor and delivery; M54.5 Low back pain; R68.84 Jaw pain; Z37.0 Single live birth; Z3A.37 37 weeks gestation of pregnancy
CPT/HCPCS: 80307; 81001; 85025; 85461; 86850; 86900; 86901; 88307; 90384; 90707; 90715; 99285; G0481; J2590; J2790; J3010; J7120

== ENCOUNTER 2016-11-10 17:58 | Emergency (ER) | payer SELFPAY ==
[~2016-11-10 17:58] MED LIST changes: -CEPH-459 PO; -FERRTAB2 PO; +NORE1DIS TOPICAL; -PREN1CHW7 PO
--- NOTE | 2016-11-10 18:21 | PD ---
Physical Exam Time Seen by Provider: 18:21 Narrative 21 year old female presents to the ED for evaluation of R sided dental pain x 3 weeks. No trauma. no fever or chills. No other symptoms. No significant medical history. Data Data Last Documented VS Vital Signs Date Time Temp Pulse Resp B/P (MAP) Pulse Ox O2 Delivery O2 Flow Rate FiO2 11/10/16 18:45 11/10/16 18:45 98.4 92 16 99 MDM Medical Record Reviewed: Yes Supervised Visit with RYLEE: No Scripts Ibuprofen (Ibuprofen) 800 Mg Tab 800 MG PO Q6HR Y for PAIN, #40 TAB 0 Refills Prov: Jeannine Proctor MD 11/10/16 Fjttsfnp-Euppntjfernsous-Wiiziyryl Liq (Magic Mouthwash Adult Liq) 120 Ml Susp 10 ML SWISH-SPIT ACHS for Mouth sores, #120 ML 1 Refill Each 5mL contains: Nystatin 200,000units, Diphenhydramine 4.25mg, Viscous Lidocaine 10mg, Holland syrup 0.8 mL Prov: Jeannine Proctor MD 11/10/16 Penicillin V Potassium (Penicillin V Potassium) 500 Mg Tab 500 MG PO Q8H for Infection for 7 Days, #21 TAB 0 Refills Prov: Jeannine Proctor MD 11/10/16 Condition: Stable Jordyn Logan Nov 10, 2016 18:21
[2016-11-10] MEDS ORDERED: IBUP800T23 PO (18:36)
[2016-11-10] MEDS ORDERED: MAGICADU2 SWISH-SPIT (18:36)
[2016-11-10] MEDS ORDERED: PENI500T PO (18:36)
--- NOTE | 2016-11-10 18:39 | PD ---
HPI Chief Complaint: Oral / Dental Pain or Problem Time Seen by Provider: 18:34 Travel History International Travel<30 days: No Contact w/Intl Traveler<30days: No Traveled to known affect area: No History of Present Illness HPI 21-year-old female here for evaluation of dental pain. Symptoms started 3 weeks ago. Throbbing pain, constant, localized to the right mandibular first molar. She reports that she's been using [id number] Advil and ibuprofen which is helped somewhat the pain but it has persisted which prompted evaluation. She endorses tobacco use. Denies fevers, chills. She has no other complaints at this time. PFSH Past Medical History Developmental Delay: No Diminished Hearing: No Immunizations Current: Yes : 0 Social History Alcohol Use: No Tobacco Use: No Substance Use: No Allergies-Medications (Allergen,Severity, Reaction): Coded Allergies: *MDRO Multi-Drug Resistant Organism (Verified Allergy, Unknown, 09/26/16) MRSA 2013 Reported Meds & Prescriptions Reported Meds & Active Scripts Active Ibuprofen 800 Mg Tab 800 Mg PO Q6HR PRN Magic Mouthwash Adult Liq (Multi-Ingredient Mouthwash/Gargle) 120 Ml Susp 10 Ml SWISH-SPIT ACHS Each 5mL contains: Nystatin 200,000units, Diphenhydramine 4.25mg, Viscous Lidocaine 10mg, Holland syrup 0.8 mL Penicillin V Potassium 500 Mg Tab 500 Mg PO Q8H 7 Days Xulane 150/35 Patch 7 DAY (Norelgestromin-Ethinyl Estradiol Patch 7 DAY) 150-35 MCG/24Hr Patch 1 Patch TOPICAL Q7D A new patch is applied each week for 3 weeks (21 total days). Week 4 is patch-free. Review of Systems General / Constitutional: No: Fever, Chills HENT: Positive: Dental Difficulties Respiratory: No: Cough Physical Exam Narrative GENERAL: Well-developed well-nourished female in no acute distress SKIN: Warm and dry. HEAD: Atraumatic. Normocephalic. EYES: Pupils equal and round. No scleral icterus. No injection or drainage. ENT: No nasal bleeding or discharge. Mucous membranes pink and moist. Dental decay localized to the right mandibular first molar which is tender to palpation. There is no gingival edema, no facial edema, no sublingual edema, no trismus. NECK: Trachea midline. No JVD. No lymphadenopathy or submandibular edema. CARDIOVASCULAR: Regular rate and rhythm. No murmur appreciated. RESPIRATORY: No accessory muscle use. Clear to auscultation. Breath sounds equal bilaterally. MDM Medical Decision Making Medical Screen Exam Complete: Yes Emergency Medical Condition: Yes Medical Record Reviewed: Yes Differential Diagnosis Dental caries, pulpitis, pericarditis, periodontal abscess Narrative Course Examination is consistent with dental caries. The patient will be discharged with nonnarcotic analgesics and a short course of penicillin. Recommend follow- up with a dentist for definitive therapy. Diagnosis Primary Impression: Dental caries Additional Instructions: Medication as prescribed. Avoid tobacco products. Follow-up with a dentist for definitive therapy. Return for any emergent medical conditions. Med/Other Pt SpecificInfo: Prescription(s) given Scripts Ibuprofen (Ibuprofen) 800 Mg Tab 800 MG PO Q6HR Y for PAIN, #40 TAB 0 Refills Prov: Jeannine Proctor MD 11/10/16 Qproccqc-Hssenfhyttqeppw-Eqhrfzcnb Liq (Magic Mouthwash Adult Liq) 120 Ml Susp 10 ML SWISH-SPIT ACHS for Mouth sores, #120 ML 1 Refill Each 5mL contains: Nystatin 200,000units, Diphenhydramine 4.25mg, Viscous Lidocaine 10mg, Holland syrup 0.8 mL Prov: Jeannine Proctor MD 11/10/16 Penicillin V Potassium (Penicillin V Potassium) 500 Mg Tab 500 MG PO Q8H for Infection for 7 Days, #21 TAB 0 Refills Prov: Jeannine Proctor MD 11/10/16 Disposition: 01 DISCHARGE HOME Condition: Stable Nitesh Fuentes Nov 10, 2016 18:39
[2016-11-10 18:45] VITALS: BP 136/68; PULSE 92; RESP 16; TEMP 98.4; O2SAT 99
== END 2016-11-10 18:53 | disposition home or self-care (01) ==
LOC: NEPK 17:58
DX: K02.9 Dental caries, unspecified (principal)
CPT/HCPCS: 99284

== ENCOUNTER 2016-12-21 19:04 | Emergency (ER) | payer SELFPAY ==
[~2016-12-21] VITALS: Ht 154.9 cm; Wt 85.0 kg
[~2016-12-21 19:04] MED LIST changes: +IBUP1TAB7 PO; +MAGICADU2 SWISH-SPIT; +PENI500T PO
[2016-12-21 19:08] VITALS: BP 145/66; PULSE 83; RESP 16; TEMP 98.3; O2SAT 100
[2016-12-21] MEDS ORDERED: SODIUM CHLORIDE 0.9% FLUSH 10 ML FLUSH IV FLUSH PRN (22:00)
--- NOTE | 2016-12-21 22:19 | PD ---
HPI Chief Complaint: Abdominal Pain Time Seen by Provider: 21:52 Travel History International Travel<30 days: No Contact w/Intl Traveler<30days: No Traveled to known affect area: No History of Present Illness HPI 21-year-old female here for evaluation of dental pain and abdominal cramping. Patient reports having right lower molar dental pain for over a month. She states she was seen in the emergency department last month for the same, without improvement in pain. She has been taking ibuprofen and aspirin for her pain, and for the last couple of days has noted intermittent diffuse abdominal cramping. She also tells me that her last menstrual period was a month and a half ago and she believes she may be . She denies vaginal bleeding or discharge. No fevers or chills. No nausea or vomiting. No diarrhea. No urinary symptoms. PFSH Past Medical History Medical History: Denies Significant Hx Developmental Delay: No Diminished Hearing: No Immunizations Current: Yes Tetanus Vaccination: < 5 Years ?: Unknown LMP: 11/23/2016 : 0 Past Surgical History Surgical History: No Previous Surgery Social History Alcohol Use: No Tobacco Use: Yes (black n milds) Substance Use: No Allergies-Medications (Allergen,Severity, Reaction): Coded Allergies: *MDRO Multi-Drug Resistant Organism (Verified Allergy, Unknown, 09/26/16) MRSA 2013 Reported Meds & Prescriptions Reported Meds & Active Scripts Active Keflex (Cephalexin) 500 Mg Cap 500 Mg PO Q12H 10 Days Review of Systems Except as stated in HPI: all other systems reviewed are Neg Physical Exam Narrative GENERAL: Well-developed, well-nourished, comfortable, no apparent distress. SKIN: Focused skin assessment warm/dry. HEAD: Atraumatic. Normocephalic. EYES: Pupils equal and round. No scleral icterus. No injection or drainage. ENT: No nasal bleeding or discharge. Mucous membranes pink and moist. Poor dentition with several dental caries, no fluctuance or induration. No sublingual swelling. No submental swelling or induration. No drooling or stridor. Normal phonation. NECK: Trachea midline. No JVD. CARDIOVASCULAR: Regular rate and rhythm. RESPIRATORY: No accessory muscle use. Clear to auscultation. Breath sounds equal bilaterally. GASTROINTESTINAL: Abdomen soft, nondistended. Mild diffuse tenderness without peritoneal signs. Normal bowel sounds. No hernias. MUSCULOSKELETAL: No obvious deformities. No clubbing. No cyanosis. No edema. NEUROLOGICAL: Awake and alert. No obvious cranial nerve deficits. Motor grossly within normal limits. Normal speech. PSYCHIATRIC: Appropriate mood and affect; insight and judgment normal. Data Data Last Documented VS Vital Signs Date Time Temp Pulse Resp B/P (MAP) Pulse Ox O2 Delivery O2 Flow Rate FiO2 12/21/16 23:26 12/21/16 22:22 16 99 Room Air 12/21/16 19:08 98.3 83 Orders Orders Complete Blood Count With Diff (12/21/16 21:55) Comprehensive Metabolic Panel (12/21/16 21:55) Lipase (12/21/16 21:55) Prothrombin Time / Inr (Pt) (12/21/16 21:55) Act Partial Throm Time (Ptt) (12/21/16 21:55) Urinalysis - C+S If Indicated (12/21/16 21:55) Iv Access Insert/Monitor (12/21/16 21:55) Ecg Monitoring (12/21/16 21:55) Oximetry (12/21/16 21:55) Sodium Chloride 0.9% Flush (Ns Flush) (12/21/16 22:00) Ed Urine Pregnancytest Poc (12/21/16 21:55) Us Pelvis (Ques Preg/Ectopic) (12/21/16 ) Beta Hcg (Quant/Titer) (12/21/16 21:55) Urine Culture (12/21/16 22:10) Acetamin-Hydrocod 325-5 Mg ([place] 5-325 (12/21/16 22:45) Cephalexin (Keflex) (12/21/16 23:00) Lidocaine 1% Inj (50 Ml) (Xylocaine 1% I (12/21/16 23:30) Ed Discharge Order (12/21/16 23:32) Labs Laboratory Tests Test 12/21/16 22:10 White Blood Count 8.6 TH/MM3 Red Blood Count 4.70 MIL/MM3 Hemoglobin 11.3 GM/DL Hematocrit 34.3 % Mean Corpuscular Volume 73.0 FL Mean Corpuscular Hemoglobin 24.0 PG Mean Corpuscular Hemoglobin Concent 32.9 % Red Cell Distribution Width 14.0 % Platelet Count 282 TH/MM3 Mean Platelet Volume 8.0 FL Neutrophils (%) (Auto) 46.0 % Lymphocytes (%) (Auto) 40.2 % Monocytes (%) (Auto) 10.8 % Eosinophils (%) (Auto) 2.4 % Basophils (%) (Auto) 0.6 % Neutrophils # (Auto) 4.0 TH/MM3 Lymphocytes # (Auto) 3.5 TH/MM3 Monocytes # (Auto) 0.9 TH/MM3 Eosinophils # (Auto) 0.2 TH/MM3 Basophils # (Auto) 0.1 TH/MM3 CBC Comment DIFF FINAL Differential Comment Prothrombin Time 10.6 SEC Prothromb Time International Ratio 1.0 RATIO Activated Partial Thromboplast Time 29.7 SEC Urine Color YELLOW Urine Turbidity HAZY Urine pH 6.5 Urine Specific [place] 1.018 Urine Protein NEG mg/dL Urine Glucose (UA) NEG mg/dL Urine Ketones NEG mg/dL Urine Occult Blood NEG Urine Nitrite NEG Urine Bilirubin NEG Urine Urobilinogen LESS THAN 2.0 MG/DL Urine Leukocyte Esterase MOD Urine RBC 6 /hpf Urine WBC 12 /hpf Urine Squamous Epithelial Cells 3 /hpf Urine Calcium Oxalate Crystals MANY /hpf Urine Amorphous Sediment RARE Urine Bacteria RARE /hpf Urine Mucus FEW /lpf Microscopic Urinalysis Comment CULTURE INDICATED Blood Urea Nitrogen 7 MG/DL Creatinine 0.75 MG/DL Random Glucose 93 MG/DL Total Protein 7.3 GM/DL Albumin 3.3 GM/DL Calcium Level 8.4 MG/DL Alkaline Phosphatase 86 U/L Aspartate Amino Transf (AST/SGOT) 11 U/L Alanine Aminotransferase (ALT/SGPT) 18 U/L Total Bilirubin 0.1 MG/DL Sodium Level 136 MEQ/L Potassium Level 3.7 MEQ/L Chloride Level 104 MEQ/L Carbon Dioxide Level 25.6 MEQ/L Anion Gap 6 MEQ/L Estimat Glomerular Filtration Rate 117 ML/MIN Lipase 81 U/L Human Chorionic Gonadotropin, Quant 31273 MIU/ML [facility] Medical Decision Making Medical Screen Exam Complete: Yes Emergency Medical Condition: Yes Differential Diagnosis Dental infection, dental caries, gastritis, peptic ulcer disease, pancreatitis, hepatobiliary disease, appendicitis, , ectopic , PID, TOA, ovarian cyst, UTI, cystitis Narrative Course Vital signs show heart rate 83, blood pressure 145/66, pulse ox 100% on room air , oral temp of 98.3F. CBC: WBC 8.6, hemoglobin 11.3, hematocrit 34.3, platelets 282. CMP is unremarkable. UA: Hazy urine, moderate leukocyte esterase, 6 rbc's, 12 wbc's, many oxalate crystals, rare bacteria, culture indicated. Pelvic ultrasound: CONCLUSION: Positive intrauterine with positive heart tones. Patient is resting comfortably. She was made aware of all findings. There are no peritoneal signs on her abdominal exam and I do not believe that there is an acute intra-abdominal/surgical process to warrant further imaging at this time. Right inferior alveolar nerve block will be performed, and the patient will be discharged home with a prescription for Keflex which will help both her dental pain/possible infection as well as her bacteriuria in . She was advised to follow-up with her [employer] physician this week. She was informed on when to return to the emergency department. She verbalizes understanding and agreement with plan. Procedures Procedure Narrative Right inferior alveolar nerve block: 1 cc of 1% lidocaine was injected in the area of the right inferior alveolar nerve. The patient experienced immediate relief of dental pain. Tolerated well. No complications. Diagnosis Primary Impression: Qualified Codes: Z3A.09 - 9 weeks gestation of Additional Impressions: Pain, dental Bacteriuria during Referrals: Dentist 3 days [employer] 3 days Additional Instructions: Follow-up with an [employer] physician this week. Follow-up with a dentist this week. Take antibiotics as prescribed. Return to the emergency department for worsening symptoms or any other concerns. Scripts Cephalexin (Keflex) 500 Mg Cap 500 MG PO Q12H for Infection for 10 Days, #20 CAP 0 Refills Prov: Mark Salazar MD 12/21/16 Disposition: 01 DISCHARGE HOME Condition: Stable Mark Salazar MD Dec 21, 2016 22:19
[2016-12-21 22:22] VITALS: RESP 16; O2SAT 99
[2016-12-21 22:33] LABS: BACTERIA, URINE RARE /hpf; BASOPHIL # 0.1 TH/MM3 (0-0.2); BASOPHIL % 0.6 % (0.0-2.0); BLOOD, URINE NEG (NEG); CALCIUM OXALATE CRYSTALS,URINE MANY /hpf; COMMENT (UR) CULTURE INDICATED; CULTURE IF INDICATED CULTURE INDICATED; EOSINOPHIL # 0.2 TH/MM3 (0-0.4); EOSINOPHIL % 2.4 % (0.0-4.0); GLUCOSE,URINE NEG (NEG); HEMATOCRIT 34.3 % (35.0-46.0); HEMO FLAGS DIFF FINAL; KETONE, URINE NEG (NEG); LYMPH % 40.2 % (9.0-44.0); LYMPHOCYTE # 3.5 TH/MM3 (1.0-4.8); MEAN CORPUSCULAR HGB CONC 32.9 % (32.0-36.0); MONO % 10.8 % (0.0-8.0); MUCUS URINE FEW /lpf (OCC); NITRITE,URINE NEG (NEG); PH, URINE 6.5 (5.0-8.5); PLATELET COUNT 282 TH/MM3 (150-450); SQUAMOUS EPITHELIAL CELL URINE 3 /hpf (0-5); URINE COLOR YELLOW (YELLW/STRAW); WHITE BLOOD COUNT 8.6 TH/MM3 (4.0-11.0)
[2016-12-21 22:44] LABS: APTT (PATIENT) 29.7 SEC (24.3-30.1); PROTHROMBIN TIME - PATIENT 10.6 SEC (9.8-11.6)
[2016-12-21] MEDS ORDERED: ACETAMINOPHEN/HYDROcodone 325 MG/5 MG TAB PO ONE (22:45)
[2016-12-21 22:50] LABS: ANION GAP 6 MEQ/L (5-15); AST (GOT) 11 U/L (15-37); BICARBONATE 25.6 MEQ/L (21.0-32.0); BLOOD UREA NITROGEN 7 MG/DL (7-18); CHLORIDE 104 MEQ/L (98-107); GLOMERULAR FILTRATION RATE 117 ML/MIN (>89); POTASSIUM 3.7 MEQ/L (3.5-5.1); SODIUM (NA) 136 MEQ/L (136-145)
[2016-12-21 22:51] LABS: ALT (GPT) 18 U/L (10-53)
[2016-12-21] MEDS ORDERED: CEPHALEXIN MONOHYDRATE 500 MG CAP PO ONE (23:00)
[2016-12-21 23:08] LABS: ALKALINE PHOSPHATASE 86 U/L (45-117); BETA HCG QUANT 43771 MIU/ML (0-5); TOTAL BILIRUBIN ADULT 0.1 MG/DL (0.2-1.0)
--- NOTE | 2016-12-21 23:14 | RADRPT ---
EXAM DATE/TIME: 12/21/2016 22:26 [place] COMPARISON: No previous studies available for comparison. INDICATIONS : Pelvic pain. LAB(S): Beta-hC MEDICAL HISTORY : . SURGICAL HISTORY : None. ENCOUNTER: Initial ACUITY: 1 week PAIN SCORE: 3/10 LOCATION: Bilateral pelvis MEASUREMENTS: UTERUS: 10.3 x 7.5 x 6.2 cm ENDOMETRIAL STRIPE: >20 mm RIGHT OVARY: 3.2 x 2.4 x 2.3 cm FREE FLUID: none CROWN RUMP LENGTH: 2.4 = 9 WKS 1 DAYS FHR: 163 BPM FINDINGS: UTERUS: The myometrium has homogeneous echotexture without mass. 5.2 x 2.5 x 4.2 cm gestational sac with a po sitive intrauterine . Ophiem-rump length of 2.4 cm corresponds with a 9 week one day gestatio n. There are positive heart tones present. RIGHT OVARY: Ovary contains no mass or significant cystic lesion other than a solitary functional cyst could be th e corpus luteal cyst. LEFT OVARY: Ovary contains no mass or significant cystic lesion. MISCELLANEOUS: No free fluid. CONCLUSION: Positive intrauterine with positive heart tones. Leandro Barcenas MD on December 21, 2016 at 23:11 Board Certified Radiologist. This report was verified electronically.
[2016-12-21] MEDS ORDERED: CEPH-460 PO (23:27)
[2016-12-21] MEDS ORDERED: LIDOCAINE HCL 1% 50 ML VIAL INFIL ONE (23:30)
== END 2016-12-22 00:42 | disposition home or self-care (01) ==
LOC: NEPD 19:04
DX: O26.891 Other specified pregnancy related conditions, first trimester (principal); R82.71 Bacteriuria; K08.89 Other specified disorders of teeth and supporting structures; R10.2 Pelvic and perineal pain; O99.331 Smoking (tobacco) complicating pregnancy, first trimester; F17.200 Nicotine dependence, unspecified, uncomplicated; Z3A.09 9 weeks gestation of pregnancy
CPT/HCPCS: 64400; 76700; 80053; 81001; 83690; 84702; 84703; 85025; 85610; 85730; 87086

== ENCOUNTER 2017-02-11 01:10 | Emergency (ER) | payer SELFPAY ==
[~2017-02-11] VITALS: Ht 154.9 cm; Wt 85.0 kg
[~2017-02-11 01:10] MED LIST changes: +CEPH-460 PO; -IBUP1TAB7 PO; -MAGICADU2 SWISH-SPIT; -NORE1DIS TOPICAL; -PENI500T PO
[2017-02-11 01:13] VITALS: BP 128/72; PULSE 95; RESP 16; TEMP 98.9; O2SAT 100
--- NOTE | 2017-02-11 01:45 | PD ---
HPI Chief Complaint: Abdominal Pain Time Seen by Provider: 01:42 Travel History International Travel<30 days: No Contact w/Intl Traveler<30days: No Traveled to known affect area: No History of Present Illness HPI This is a 21-year-old Ab1 who states she had a positive test a couple weeks ago, presents today with points of tightness and fullness in her lower abdomen. She reports it as a achy like pain. She denies any vaginal bleeding or discharge. She denies any urinary symptoms other than more frequent urination. She states that she had a positive test a few weeks ago. She states that she was not sure how far along she was at that time. She cannot tell me when her last menstrual cycle was. She does state that she's been "partying". When asked what that meant, she states that she's been drinking a lot. When asked why she is drinking a lot, she reports it stems from her brother being killed and she is using alcohol to help deal with the pain. She denies any other drugs of abuse. There are no other complaints time my examination. PFSH Past Medical History Developmental Delay: No Diminished Hearing: No Immunizations Current: Yes ?: : 3 Para: 1 Miscarriage: 1 Past Surgical History Surgical History: No Previous Surgery Social History Alcohol Use: Yes (DAILY- 1 DRINK/DAY) Tobacco Use: Yes (black n milds- 2/DAY) Substance Use: No Allergies-Medications (Allergen,Severity, Reaction): Coded Allergies: *MDRO Multi-Drug Resistant Organism (Verified Allergy, Unknown, 02/11/17) MRSA 2013 Reported Meds & Prescriptions Reported Meds & Active Scripts Active Plus Iron 29-1 mg ( Vit-Iron Carbonyl) 29 Mg Iron-1 Mg Tab 1 Tab PO DAILY Macrobid (Nitrofurantoin Monoh/Nitrofur Macro) 100 Mg Cap 100 Mg PO BID 7 Days Keflex (Cephalexin) 500 Mg Cap 500 Mg PO Q12H 10 Days Review of Systems Except as stated in HPI: all other systems reviewed are Neg HENT: No: Headaches, Neck Pain Cardiovascular: No: Chest Pain or Discomfort, Palpitations Respiratory: No: Cough, Shortness of Breath Gastrointestinal: Positive: Abdominal Pain, No: Nausea, Vomiting Genitourinary: Positive: Frequency, No: Dysuria, Flank Pain, Discharge, Vaginal Bleeding Musculoskeletal: No: Weakness, Pain Neurologic: No: Weakness, Dizziness Physical Exam Narrative GENERAL: Well-nourished, well-developed patient. SKIN: Focused skin assessment warm/dry. HEAD: Normocephalic/atraumatic. EYES: No scleral icterus. No injection or drainage. NECK: Supple, trachea midline. No JVD or lymphadenopathy. CARDIOVASCULAR: Regular rate and rhythm without murmurs, gallops, or rubs. RESPIRATORY: Breath sounds equal bilaterally. No accessory muscle use. GASTROINTESTINAL: Abdomen soft, nondistended. She has subjective suprapubic discomfort to deep palpation. There is no rebound or guarding. MUSCULOSKELETAL: No cyanosis, or edema. NEUROLOGICAL: Awake and alert. Cranial nerves II through XII intact. Motor grossly within normal limits. Five out of 5 muscle strength in all muscle groups. Normal speech. Data Data Last Documented VS Vital Signs Date Time Temp Pulse Resp B/P (MAP) Pulse Ox O2 Delivery O2 Flow Rate FiO2 02/11/17 01:13 98.9 95 16 128/72 (90) 100 Orders Orders Urinalysis - C+S If Indicated (02/11/17 01:41) Ed Urine Pregnancytest Poc (02/11/17 01:41) Urine Culture (02/11/17 01:50) Complete Blood Count With Diff (02/11/17 02:23) Beta Hcg (Quant/Titer) (02/11/17 02:23) Nitrofurantoin Monohyd Macrocr (Macrobid (02/11/17 04:30) Labs Laboratory Tests Test 02/11/17 01:50 02/11/17 03:14 Urine Color YELLOW Urine Turbidity HAZY Urine pH 6.0 Urine Specific [place] 1.025 Urine Protein TRACE mg/dL Urine Glucose (UA) NEG mg/dL Urine Ketones NEG mg/dL Urine Occult Blood NEG Urine Nitrite NEG Urine Bilirubin NEG Urine Urobilinogen 2.0 MG/DL Urine Leukocyte Esterase LARGE Urine RBC 15 /hpf Urine WBC 18 /hpf Urine Squamous Epithelial Cells 6 /hpf Urine Amorphous Sediment RARE Urine Bacteria RARE /hpf Urine Mucus FEW /lpf Microscopic Urinalysis Comment CULTURE INDICATED White Blood Count 12.5 TH/MM3 Red Blood Count 4.48 MIL/MM3 Hemoglobin 10.7 GM/DL Hematocrit 32.4 % Mean Corpuscular Volume 72.3 FL Mean Corpuscular Hemoglobin 23.9 PG Mean Corpuscular Hemoglobin Concent 33.0 % Red Cell Distribution Width 14.2 % Platelet Count 259 TH/MM3 Mean Platelet Volume 8.3 FL Neutrophils (%) (Auto) 59.0 % Lymphocytes (%) (Auto) 27.6 % Monocytes (%) (Auto) 8.5 % Eosinophils (%) (Auto) 4.5 % Basophils (%) (Auto) 0.4 % Neutrophils # (Auto) 7.4 TH/MM3 Lymphocytes # (Auto) 3.5 TH/MM3 Monocytes # (Auto) 1.1 TH/MM3 Eosinophils # (Auto) 0.6 TH/MM3 Basophils # (Auto) 0.0 TH/MM3 CBC Comment DIFF FINAL Differential Comment Human Chorionic Gonadotropin, Quant [id number] MIU/ML MDM Medical Decision Making Medical Screen Exam Complete: Yes Emergency Medical Condition: Yes Differential Diagnosis Intrauterine versus ectopic versus pelvic infection Narrative Course Year-old female who presents with abdominal discomfort. The patient denies any urinary symptoms. Patient's urinalysis shows evidence of infection. Cultures have been ordered on it. The patient be given a prescription for Macrobid 7 days per she's been given her first dose of Macrobid here. Bedside ultrasound by this physician showed an intrauterine that appears greater than 10 weeks. There is good heart tones. Heart tones were in the 150s 160s. Good movement. He also be given a prescription for vitamins. She is encouraged to follow up with an NURSE COMPANION of her choice. She is instructed return she'll say worsening discomfort, vaginal pain, or any other reason that concerned her. Diagnosis Primary Impression: cystitis Additional Impression: Intrauterine Additional Instructions: Return if vaginal bleeding, fevers chills, worsening abdominal pain, or any other reason the concerns you. Med/Other Pt SpecificInfo: Prescription(s) given Scripts Vit-Iron Carbonyl ( Plus Iron 29-1 mg) 29 Mg Iron-1 Mg Tab 1 TAB PO DAILY for Nutritional Supplement, #30 TAB 0 Refills Prov: Shaggy Dumont MD 02/11/17 Nitrofurantoin Monohydrate Macrocrystals (Macrobid) 100 Mg Cap 100 MG PO BID for Infection for 7 Days, #14 CAP 0 Refills Prov: Shaggy Dumont MD 02/11/17 Disposition: DISCHARGE HOME Condition: Stable Shaggy Dumont MD Feb 11, 2017 01:44
[2017-02-11 02:03] LABS: AMORPHOUS SEDIMENT, URINE RARE; BACTERIA, URINE RARE /hpf; BILIRUBIN, URINE NEG (NEG); BLOOD, URINE NEG (NEG); GLUCOSE,URINE NEG (NEG); KETONE, URINE NEG (NEG); MUCUS URINE FEW /lpf (OCC); NITRITE,URINE NEG (NEG); SQUAMOUS EPITHELIAL CELL URINE 6 /hpf (0-5); URINE COLOR YELLOW (YELLW/STRAW); URINE LEUKOCYTE ESTERASE LARGE (NEG)
[2017-02-11 03:26] LABS: AUTOMATED NEUTROPHIL # 7.4 TH/MM3 (1.8-7.7); BASOPHIL % 0.4 % (0.0-2.0); EOSINOPHIL # 0.6 TH/MM3 (0-0.4); EOSINOPHIL % 4.5 % (0.0-4.0); HEMATOCRIT 32.4 % (35.0-46.0); HEMOGLOBIN 10.7 GM/DL (11.6-15.3); LYMPH % 27.6 % (9.0-44.0); LYMPHOCYTE # 3.5 TH/MM3 (1.0-4.8); MEAN CELL VOLUME 72.3 FL (80.0-100.0); MEAN CORPUSCULAR HEMOGLOBIN 23.9 PG (27.0-34.0); MEAN PLATELET VOLUME 8.3 FL (7.0-11.0); MONO % 8.5 % (0.0-8.0); MONOCYTE # 1.1 TH/MM3 (0-0.9); PLATELET COUNT 259 TH/MM3 (150-450); RED BLOOD COUNT 4.48 MIL/MM3 (4.00-5.30); RED CELL DISTRIBUTION WIDTH 14.2 % (11.6-17.2); WHITE BLOOD COUNT 12.5 TH/MM3 (4.0-11.0)
[2017-02-11] MEDS ORDERED: NITROFURANTOIN MONOHYD MACROCR 100 MG CAP PO ONE (04:30)
[2017-02-11] MEDS ORDERED: MACR100C2 PO (04:30)
[2017-02-11] MEDS ORDERED: PREN29TA PO (04:30)
== END 2017-02-11 04:45 | disposition home or self-care (01) ==
LOC: NEPE 01:10
DX: O23.11 Infections of bladder in pregnancy, first trimester (principal); O99.331 Smoking (tobacco) complicating pregnancy, first trimester; O99.311 Alcohol use complicating pregnancy, first trimester; Z3A.10 10 weeks gestation of pregnancy
CPT/HCPCS: 81001; 84702; 84703; 85025; 87086; 99284

== ENCOUNTER 2017-02-26 22:18 | Emergency (ER) | payer SELFPAY ==
[~2017-02-26] VITALS: Ht 154.9 cm; Wt 86.0 kg
[~2017-02-26 22:18] MED LIST changes: +MACR100C2 PO; +PREN29TA PO
[2017-02-26 22:43] VITALS: BP 150/67; PULSE 93; RESP 20; TEMP 97.9; O2SAT 100
--- NOTE | 2017-02-26 23:42 | PD ---
HPI Chief Complaint: Related Problem Time Seen by Provider: 23:26 Travel History International Travel<30 days: No Contact w/Intl Traveler<30days: No Traveled to known affect area: No History of Present Illness HPI 21yo F with no PMD or PSH presents to the ED with c/o lower abdominal cramping, dysuria for 2 days. +White vaginal discharge. Denies any fever, chest pain, n/v , vaginal bleeding . Pt was seen here 02/11/17 and was diagnose with cystitis and given a prescription of macrobid. Pt said she did not fill her medication. At that time, bedside US was completed and showed an IUP >10 weeks. Pt does not know her LMP. Did not take anything for pain at home. PFSH Past Medical History Medical History: Denies Significant Hx Developmental Delay: No Diminished Hearing: No Immunizations Current: Yes ?: : 3 Para: 1 Miscarriage: 1 Past Surgical History Surgical History: No Previous Surgery Social History Alcohol Use: No Tobacco Use: Yes (black n milds- 2/DAY) Substance Use: No Allergies-Medications (Allergen,Severity, Reaction): Coded Allergies: *MDRO Multi-Drug Resistant Organism (Verified Allergy, Unknown, 02/26/17) MRSA 2013 Reported Meds & Prescriptions Reported Meds & Active Scripts Active No Active Prescriptions or Reported Medications Review of Systems Except as stated in HPI: all other systems reviewed are Neg Physical Exam Narrative GENERAL: 21yo F in mild distress. SKIN: Focused skin assessment warm/dry. HEAD: Atraumatic. Normocephalic. . CARDIOVASCULAR: Regular rate and rhythm. No murmur appreciated. RESPIRATORY: No accessory muscle use. Clear to auscultation. Breath sounds equal bilaterally. GASTROINTESTINAL: Abdomen soft, gravid. +TTP lower abdomen diffusely. More suprapubic. PELVIC: +White thick vaginal discharge. No blood. No CMT or adnexal tenderness bilaterally. MUSCULOSKELETAL: No obvious deformities. No clubbing. No cyanosis. No edema. NEUROLOGICAL: Awake and alert. No obvious cranial nerve deficits. Motor grossly within normal limits. Normal speech. PSYCHIATRIC: Appropriate mood and affect; insight and judgment normal. Data Data Last Documented VS Vital Signs Date Time Temp Pulse Resp B/P (MAP) Pulse Ox O2 Delivery O2 Flow Rate FiO2 02/26/17 22:43 97.9 93 20 150/67 (94) 100 Room Air Orders Orders Complete Blood Count With Diff (02/26/17 23:38) Comprehensive Metabolic Panel (02/26/17 23:38) Gc And Chlamydia Pcr (02/26/17 23:38) Wet Prep Profile (02/26/17 23:38) Urinalysis - C+S If Indicated (02/26/17 23:38) Urine Culture (02/26/17 23:30) Nitrofurantoin Monohyd Macrocr (Macrobid (02/27/17 00:45) Azithromycin Powd Pack (Zithromax Powd P (02/27/17 02:30) Ceftriaxone Inj (Rocephin Inj) (02/27/17 02:30) Lidocaine 1% Inj (50 Ml) (Xylocaine 1% I (02/27/17 02:30) Ed Poc Ultrasound (02/27/17 ) Labs Laboratory Tests Test 02/26/17 23:30 02/26/17 23:50 02/27/17 00:00 Urine Color LIGHT-YELLOW Urine Turbidity HAZY Urine pH 7.0 Urine Specific [place] 1.008 Urine Protein NEG mg/dL Urine Glucose (UA) NEG mg/dL Urine Ketones 10 mg/dL Urine Occult Blood NEG Urine Nitrite NEG Urine Bilirubin NEG Urine Urobilinogen LESS THAN 2.0 MG/DL Urine Leukocyte Esterase LARGE Urine RBC 9 /hpf Urine WBC 61 /hpf Urine Squamous Epithelial Cells 5 /hpf Urine Amorphous Sediment RARE Urine Bacteria OCC /hpf Urine Mucus FEW /lpf Microscopic Urinalysis Comment CULTURE INDICATED Clue Cells (Wet Prep) NONE SEEN Vaginal Trichomonas (Wet Prep) NONE SEEN Vaginal Yeast (Wet Prep) NONE SEEN Chlamydia trachomatis DNA (PCR) DETECTED Neisseria gonorrhoeae DNA (PCR) NOT DETECTED White Blood Count 10.4 TH/MM3 Red Blood Count 4.40 MIL/MM3 Hemoglobin 10.6 GM/DL Hematocrit 32.1 % Mean Corpuscular Volume 72.9 FL Mean Corpuscular Hemoglobin 24.2 PG Mean Corpuscular Hemoglobin Concent 33.1 % Red Cell Distribution Width 14.0 % Platelet Count 245 TH/MM3 Mean Platelet Volume 8.3 FL Neutrophils (%) (Auto) 56.9 % Lymphocytes (%) (Auto) 31.9 % Monocytes (%) (Auto) 8.0 % Eosinophils (%) (Auto) 2.7 % Basophils (%) (Auto) 0.5 % Neutrophils # (Auto) 5.9 TH/MM3 Lymphocytes # (Auto) 3.3 TH/MM3 Monocytes # (Auto) 0.8 TH/MM3 Eosinophils # (Auto) 0.3 TH/MM3 Basophils # (Auto) 0.0 TH/MM3 CBC Comment DIFF FINAL Differential Comment Blood Urea Nitrogen 7 MG/DL Creatinine 0.50 MG/DL Random Glucose 76 MG/DL Total Protein 7.4 GM/DL Albumin 3.1 GM/DL Calcium Level 8.5 MG/DL Alkaline Phosphatase 86 U/L Aspartate Amino Transf (AST/SGOT) 8 U/L Alanine Aminotransferase (ALT/SGPT) 14 U/L Total Bilirubin 0.1 MG/DL Sodium Level 139 MEQ/L Potassium Level 3.4 MEQ/L Chloride Level 107 MEQ/L Carbon Dioxide Level 23.3 MEQ/L Anion Gap 9 MEQ/L Estimat Glomerular Filtration Rate 187 ML/MIN MDM Medical Decision Making Medical Screen Exam Complete: Yes Emergency Medical Condition: Yes Differential Diagnosis Cystitis vs. bacterial vaginosis vs. PID Narrative Course 21yo F here with lower abdominal pain and vaginal discharge. Pt given acetaminophen and pain has resolved. Abdomen is soft, NT/ND. Labs reviewed, no leukocytosis. H/H low but at baseline. CMP unremarkable. UA showed large leukocyte. WBC 61. Pt given macrobid. Pt is well appearing and tolerating PO. Denies any fever. Pt said she found out she does have insurance from registration so she will get her medication and follow up with OBGYN. Wet prep negative. Chlamydia detected. Pt given azithromycin and ceftriaxone with lidocaine. Bedside US showed IUP. Return precautions given. Procedures Procedure Narrative Emergency Department Pelvic ultrasound was performed with patient consent. The curvilinear probe was used in the transverse and sagittal views within the suprapubic region revealing single intrauterine . heart rate was 152bpm. Diagnosis Primary Impression: Cystitis Additional Impression: Chlamydia Patient Instructions: General Instructions Departure Forms: Tests/Procedures Additional Instructions: Please follow up with OBGYN in 2-3 days. Return to the ED if symptoms worsen. Med/Other Pt SpecificInfo: Prescription(s) given Scripts Acetaminophen (Tylenol) 325 Mg Tab 650 MG PO Q6H Y for PAIN SCALE 1 TO 4, #20 TAB 0 Refills Prov: Rachel Livingston DO 02/27/17 Nitrofurantoin Monohydrate Macrocrystals (Macrobid) 100 Mg Cap 100 MG PO BID for Infection for 7 Days, #14 CAP 0 Refills Prov: Rachel Livingston DO 02/27/17 Disposition: 01 DISCHARGE HOME Condition: Stable Rachel Livingston DO Feb 26, 2017 23:42
[2017-02-27 00:16] LABS: AMORPHOUS SEDIMENT, URINE RARE; BACTERIA, URINE OCC /hpf; BILIRUBIN, URINE NEG (NEG); BLOOD, URINE NEG (NEG); GLUCOSE,URINE NEG (NEG); KETONE, URINE 10 mg/dL (NEG); MUCUS URINE FEW /lpf (OCC); NITRITE,URINE NEG (NEG); SQUAMOUS EPITHELIAL CELL URINE 5 /hpf (0-5); URINE COLOR LIGHT-YELLOW (YELLW/STRAW); URINE LEUKOCYTE ESTERASE LARGE (NEG)
[2017-02-27 00:20] LABS: AUTOMATED NEUTROPHIL # 5.9 TH/MM3 (1.8-7.7); BASOPHIL % 0.5 % (0.0-2.0); EOSINOPHIL # 0.3 TH/MM3 (0-0.4); EOSINOPHIL % 2.7 % (0.0-4.0); HEMATOCRIT 32.1 % (35.0-46.0); HEMOGLOBIN 10.6 GM/DL (11.6-15.3); LYMPH % 31.9 % (9.0-44.0); LYMPHOCYTE # 3.3 TH/MM3 (1.0-4.8); MEAN CELL VOLUME 72.9 FL (80.0-100.0); MEAN CORPUSCULAR HEMOGLOBIN 24.2 PG (27.0-34.0); MEAN CORPUSCULAR HGB CONC 33.1 % (32.0-36.0); MEAN PLATELET VOLUME 8.3 FL (7.0-11.0); MONOCYTE # 0.8 TH/MM3 (0-0.9); NEUT % 56.9 % (16.0-70.0); PLATELET COUNT 245 TH/MM3 (150-450); WHITE BLOOD COUNT 10.4 TH/MM3 (4.0-11.0)
[2017-02-27 00:25] LABS: ALBUMIN 3.1 GM/DL (3.4-5.0); ALT (GPT) 14 U/L (10-53); AST (GOT) 8 U/L (15-37); BICARBONATE 23.3 MEQ/L (21.0-32.0); BLOOD UREA NITROGEN 7 MG/DL (7-18); CALCIUM 8.5 MG/DL (8.5-10.1); CHLORIDE 107 MEQ/L (98-107); GLOMERULAR FILTRATION RATE 187 ML/MIN (>89); GLUCOSE,RANDOM 76 MG/DL (74-106); SODIUM (NA) 139 MEQ/L (136-145)
[2017-02-27 00:27] LABS: ALKALINE PHOSPHATASE 86 U/L (45-117); TOTAL BILIRUBIN ADULT 0.1 MG/DL (0.2-1.0); TOTAL PROTEIN 7.4 GM/DL (6.4-8.2)
[2017-02-27] MEDS ORDERED: NITROFURANTOIN MONOHYD MACROCR 100 MG CAP PO ONE (00:45)
[2017-02-27] MEDS ORDERED: AZITHROMYCIN PWD FOR SUSP 1 GM PACKET PO ONE (02:30)
[2017-02-27] MEDS ORDERED: cefTRIAXone 250 MG VIAL IM ONE (02:30)
[2017-02-27] MEDS ORDERED: LIDOCAINE HCL 1% 50 ML VIAL IM ONE (02:30)
[2017-02-27] MEDS ORDERED: MACR100C2 PO (02:54)
[2017-02-27] MEDS ORDERED: TYLE325T PO (02:54)
[2017-02-27] MEDS ORDERED: ACETAMINOPHEN 325 MG TAB PO ONE (03:00)
== END 2017-02-27 03:03 | disposition home or self-care (01) ==
LOC: NEPC 22:18
DX: O23.10 Infections of bladder in pregnancy, unspecified trimester (principal); O98.819 Other maternal infectious and parasitic diseases complicating pregnancy, unspecified trimester; A74.9 Chlamydial infection, unspecified; Z3A.00 Weeks of gestation of pregnancy not specified
CPT/HCPCS: 80053; 81001; 85025; 87086; 87210; 87491; 87591; 96372; 99284; J0696

== ENCOUNTER 2017-05-26 12:47 | Emergency (ER) | payer OTHER ==
[~2017-05-26 12:47] MED LIST changes: -CEPH-460 PO; -PREN29TA PO; +TYLE325T PO
--- NOTE | 2017-05-26 14:47 | PD ---
HPI Chief Complaint decreased movement, vaginal discharge Date Seen: May 26, 2017 Time Seen: 14:00 Travel History International Travel<30 Days: No Contact w/Intl Traveler<30Days: No Known Affected Area: No History of Present Illness HPI Ms Jackson is a 22YO reporting to be at 5.5 months with no PNC who p/w report of decreased movement and vaginal discharge. Pt reports her 1st ended in demise at approx 25 weeks and pt had leakage of fluid that she did not know had caused the demise and is worried that she has some whitish vaginal discharge and is not sure if she is leaking fluid. Pt states her fetus has been butterfly kicking vigorously up until 2 days ago and is still kicking but not at baseline. Pt reports no overt LOF or VB, but has had some whitish vaginal discharge and is concerned about the possibility of occult LOF. Additionally, pt complains of occasional stabbing pain in left flank. Pt plans to establish PNC with [facility] but complains the soonest she can get an appt is June 23. Pt has had 3 HAs this week, occasionally dizzy, states she has been hydrating, and takes no medications (including no PNV). States she is not nauseous but vomited once during this about a week ago. States she had stabbing CP last night that resolved. Denies SOB, current N/V/D, abdominal or DVT leg pain. Para: 2 : 3 History Past Medical History Medical History: Denies Significant Hx Obstetric History Obstetric History 1st ended in demise at 22-25 weeks 2nd delivered at term via Family History Narrative Family History Sister has DM that began during her when she was 17 Father - DM, liver problems Allergies-Medications (Allergen,Severity, Reaction): Coded Allergies: *MDRO Multi-Drug Resistant Organism (Verified Allergy, Unknown, 02/26/17) MRSA 2013 Home Meds Active Scripts Acetaminophen (Tylenol) 325 Mg Tab, 650 MG PO Q6H Y for PAIN SCALE 1 TO 4, #20 TAB 0 Refills Prov:Rachel Livingston DO 02/27/17 Nitrofurantoin Monohydrate Macrocrystals (Macrobid) 100 Mg Cap, 100 MG PO BID for Infection for 7 Days, #14 CAP 0 Refills Prov:Rachel Livingston DO 02/27/17 Review of Systems General / Constitutional: No: Fever, Chills Eyes: No: Blurred Vision, Visual changes HENT: No: Headaches Cardiovascular: Chest Pain or Discomfort (last night had stabbing CP), No: Palpitations Respiratory: No: Cough, Short of Breath Gastrointestinal: Vomiting (1x last week), No: Nausea, Diarrhea, Abdominal Pain , Constipation Genitourinary: Discharge, No: Dysuria, Vaginal Bleeding Musculoskeletal: No: Edema Skin: No Rash Neurologic: Dizziness, Headache, No: Weakness Physical Exam T - 98.0 / HR 91 / BP 124/65 / RR 16 / Narrative GENERAL: Well-nourished, well-developed patient in NAD. SKIN: Warm and dry. No rash or lesions. HEAD: Normocephalic and atraumatic. EYES: No scleral icterus. No injection or drainage. EOMI. ENT: No nasal drainage noted. Mucous membranes pink. Airway patent. NECK: Supple, trachea midline. No JVD. CARDIOVASCULAR: Regular rate and rhythm without murmurs, gallops, or rubs. RESPIRATORY: Breath sounds equal bilaterally. No accessory muscle use. NO increased WOB. ABDOMEN/GI: Abdomen soft, non-tender, bowel sounds present, no rebound, no guarding Gravid to 30 weeks size GENITOURINARY: external genitalia normal in appearance; copious white discharge in the vagina. Cervix: closed Dilatation: 0 Effacement: - Station: - Presentation: - Membranes: intact Uterine Contractions: absent FHT's: Category: 1 Baseline: 145 Reactive: yes Variability: moderate Decels: absent EXTREMITIES: No cyanosis or edema. BACK: Nontender without obvious deformity. No CVA tenderness. NEUROLOGICAL: Awake and alert. Motor and sensory grossly within normal limits. Five out of 5 muscle strength in all muscle groups. Normal speech. Data Data Vital Signs Reviewed: Yes MDM Medical Record Reviewed: Yes Narrative Course / MDM 22YO at estimated 31/1 weeks based on OB US in 3rd trimester today (05/26) (JO 07/27/17) with no PNC p/w report of decreased movement and whitish vaginal discharge x3 days. Fundal height measured at 30cm; FHT reassuring Cat 1, BL 145, reactive, moderate, no decels. 1. IUP -Monitor and toco -UA - labs -STI screen + wet prep -OB US showing GA 31/1 weeks Pt seen and dw Dr Hall Diagnosis Diagnosis: Primary Impression: No care in current Qualified Codes: O09.33 - Supervision of with insufficient care, third trimester Additional Impression: Yeast vaginitis Disposition: 01 DISCHARGE HOME Condition: Stable Scripts Vit-Iron Carbonyl ( Plus Iron 29-1 mg) 29 Mg Iron-1 Mg Tab 1 TAB PO DAILY for Nutritional Supplement, #30 TAB 0 Refills Prov: Eric Marvin MD R1 05/26/17 Miconazole 3 Vaginal Supp (Miconazole 3 Vaginal Supp) 200 Mg Supp 200 MG VAGINAL HS for Infection for 3 Days, #3 SUPP 0 Refills Prov: Eric Marvin MD R1 05/26/17 Eric Marvin MD R1 May 26, 2017 14:47
[2017-05-26 15:14] LABS: BACTERIA, URINE FEW /hpf; BILIRUBIN, URINE NEG (NEG); BLOOD, URINE NEG (NEG); GLUCOSE,URINE NEG (NEG); KETONE, URINE 10 mg/dL (NEG); MUCUS URINE FEW /lpf (OCC); NITRITE,URINE NEG (NEG); PH, URINE 7.5 (5.0-8.5); SQUAMOUS EPITHELIAL CELL URINE 2 /hpf (0-5); URINE COLOR YELLOW (YELLW/STRAW); URINE LEUKOCYTE ESTERASE SMALL (NEG)
[2017-05-26] MEDS ORDERED: PREN29TA PO (15:30)
[2017-05-26] MEDS ORDERED: MICO200V VAGINAL (15:30)
[2017-05-26 16:14] LABS: AUTOMATED NEUTROPHIL # 7.7 TH/MM3 (1.8-7.7); BASOPHIL % 0.4 % (0.0-2.0); EOSINOPHIL # 0.3 TH/MM3 (0-0.4); EOSINOPHIL % 2.1 % (0.0-4.0); HEMATOCRIT 34.4 % (35.0-46.0); HEMOGLOBIN 11.2 GM/DL (11.6-15.3); LYMPH % 24.5 % (9.0-44.0); LYMPHOCYTE # 2.9 TH/MM3 (1.0-4.8); MEAN CORPUSCULAR HEMOGLOBIN 23.5 PG (27.0-34.0); MEAN CORPUSCULAR HGB CONC 32.6 % (32.0-36.0); MEAN PLATELET VOLUME 8.3 FL (7.0-11.0); PLATELET COUNT 284 TH/MM3 (150-450); RED BLOOD COUNT 4.78 MIL/MM3 (4.00-5.30); RED CELL DISTRIBUTION WIDTH 12.9 % (11.6-17.2); WHITE BLOOD COUNT 11.9 TH/MM3 (4.0-11.0)
== END 2017-05-26 16:48 | disposition home or self-care (01) ==
LOC: HOBED 12:47
DX: O09.33 Supervision of pregnancy with insufficient antenatal care, third trimester (principal); O98.813 Other maternal infectious and parasitic diseases complicating pregnancy, third trimester; B37.3 Candidiasis of vulva and vagina; R82.71 Bacteriuria; Z3A.31 31 weeks gestation of pregnancy
CPT/HCPCS: 36415; 76805; 80074; 80307; 81001; 85025; 86592; 86703; 86762; 86850; 86900; 86901; 87210; 87491; 87591; 99284; G0481

== ENCOUNTER 2017-05-31 12:33 | Emergency (ER) | payer OTHER ==
[~2017-05-31 12:33] MED LIST changes: +MICO200V VAGINAL; +PREN29TA PO
--- NOTE | 2017-05-31 14:12 | PD ---
HPI Chief Complaint cramping Date Seen: May 31, 2017 Time Seen: 14:06 Travel History International Travel<30 Days: No Contact w/Intl Traveler<30Days: No Known Affected Area: No History of Present Illness HPI pt. is a 23 y/o @ 31 6/7 weeks present w/ c/o abdominal cramping. pt. states truout the day has had increasing abdominal cramping in particular on her left side. pt. states had small bm this am, voiding w/o diff and no blood noted in urine. +FM, no lof/vb. denies n/v Weeks Gestation: 31 Para: 1 : 3 History Past Medical History Medical History: Denies Significant Hx Obstetric History Obstetric History , x 2, 22 week demise in 2016 Past Surgical History Surgical History: No Previous Surgery Family History Family History: Negative Social History Alcohol Use: No Tobacco Use: No Substance Abuse: No Allergies-Medications (Allergen,Severity, Reaction): Coded Allergies: *MDRO Multi-Drug Resistant Organism (Verified Allergy, Unknown, 02/26/17) MRSA 2013 Home Meds Active Scripts Vit-Iron Carbonyl ( Plus Iron 29-1 mg) 29 Mg Iron-1 Mg Tab, 1 TAB PO DAILY for Nutritional Supplement, #30 TAB 0 Refills Prov:Eric Marvin MD R1 05/26/17 Miconazole 3 Vaginal Supp (Miconazole 3 Vaginal Supp) 200 Mg Supp, 200 MG VAGINAL HS for Infection for 3 Days, #3 SUPP 0 Refills Prov:Eric Marvin MD R1 05/26/17 Acetaminophen (Tylenol) 325 Mg Tab, 650 MG PO Q6H Y for PAIN SCALE 1 TO 4, #20 TAB 0 Refills Prov:Rachel Livingston DO 02/27/17 Nitrofurantoin Monohydrate Macrocrystals (Macrobid) 100 Mg Cap, 100 MG PO BID for Infection for 7 Days, #14 CAP 0 Refills Prov:Rachel Livingston DO 02/27/17 Review of Systems Except as stated in HPI: all other systems reviewed are Neg Physical Exam Narrative GENERAL: Well-nourished, well-developed patient. SKIN: Warm and dry. HEAD: Normocephalic and atraumatic. EYES: No scleral icterus. No injection or drainage. ENT: No nasal drainage noted. Mucous membranes pink. Airway patent. NECK: Supple, trachea midline. No JVD. CARDIOVASCULAR: Regular rate and rhythm without murmurs, gallops, or rubs. RESPIRATORY: Breath sounds equal bilaterally. No accessory muscle use. BREASTS: Bilateral exam showed no masses , no retractions, no nipple discharge. ABDOMEN/GI: Abdomen soft, non-tender, bowel sounds present, no rebound, no guarding Gravid GENITOURINARY: External Genitalia: intact and normal in appearance Cervix: post Dilatation: 1 Effacement: 40 Station: high Uterine Contractions: irreg FHT's: Category: 1 Reactive: + Variability: mod EXTREMITIES: No cyanosis or edema. BACK: Nontender without obvious deformity. No CVA tenderness. NEUROLOGICAL: Awake and alert. Motor and sensory grossly within normal limits. Five out of 5 muscle strength in all muscle groups. Normal speech. Data Data Vital Signs Reviewed: Yes Orders Orders Acetaminophen (Tylenol) (05/31/17 14:15) [facility] Medical Record Reviewed: Yes Plan pt. to be d/c to home. pt. w/o pnc has appointment tomorrow for 1st visit. condition d/w pt. all ? answered. pt. given precautions for return. Diagnosis Diagnosis: Primary Impression: Abdominal pain affecting Additional Impression: 31 weeks gestation of Disposition: 01 DISCHARGE HOME Dennis Hall Jr., MD May 31, 2017 14:12
[2017-05-31] MEDS ORDERED: ACETAMINOPHEN 500 MG CPLT PO ONE (14:15)
== END 2017-05-31 14:47 | disposition home or self-care (01) ==
LOC: HOBED 12:33
DX: O26.893 Other specified pregnancy related conditions, third trimester (principal); Z3A.31 31 weeks gestation of pregnancy
CPT/HCPCS: 99284

== ENCOUNTER → 2017-06-23 | Outpatient (CLI) | payer OTHER | LOC: HPND 14:30 | PROVIDERS: ATTEND Obstetrics & Gynecology | DX: O09.33 Supervision of pregnancy with insufficient antenatal care, third trimester (principal); O09.293 Supervision of pregnancy with other poor reproductive or obstetric history, third trimester; O26.843 Uterine size-date discrepancy, third trimester | CPT/HCPCS: 76816 ==

== ENCOUNTER 2017-07-25 23:40 | Inpatient (IN) | payer OTHER ==
[~2017-07-25] VITALS: Ht 154.9 cm; Wt 93.0 kg
--- NOTE | 2017-07-25 23:52 | PD ---
HPI Chief Complaint Contractions Travel History International Travel<30 Days: No Contact w/Intl Traveler<30Days: No Known Affected Area: No History of Present Illness HPI 22-year-old , IUP at 39.2 care complicated by obesity, history of PPROM with loss at 22-23 weeks , history of SGA delivery, trichomonas, late care, ascus Pap, marijuana use The patient presents complaining of the onset of painful contractions at about 830 tonight. She repeat reports they have increased in intensity and frequency since that time. There are no aggravating or alleviating factors and no attempted treatments. She reports that she is feeling extremely painful contractions every 10-15 minutes. She reports good movement. She denies any leaking of fluid or vaginal bleeding. Weeks Gestation: 39 Para: 1 : 3 History Past Medical History Narrative Medical Obesity Obstetric History Obstetric History 1 4 lbs. 15 oz. at 37 weeks P PROM at 22-23 weeks with demise/stillborn Past Surgical History Surgical History: No Previous Surgery Family History Narrative Family History DM, liver disease Social History Alcohol Use: No Tobacco Use: No (JESSICA 2 years ago) Substance Abuse: Yes (Maria Elena) Allergies-Medications (Allergen,Severity, Reaction): Coded Allergies: *MDRO Multi-Drug Resistant Organism (Verified Allergy, Unknown, 07/26/17) MRSA 2013 No Known Allergies (Verified Allergy, Unknown, 07/26/17) Home Meds Active Scripts Vit-Iron Carbonyl ( Plus Iron 29-1 mg) 29 Mg Iron-1 Mg Tab, 1 TAB PO DAILY for Nutritional Supplement, #30 TAB 0 Refills Prov:Eric Marvin MD R1 05/26/17 Reported Medications Ferrous Sulfate (Ferrous Sulfate) 325 Mg (65 Mg Iron) Tablet, 325 MG PO BIDPC for Nutritional Supplement, #60 TAB 0 Refills 07/26/17 Discontinued Scripts Miconazole 3 Vaginal Supp (Miconazole 3 Vaginal Supp) 200 Mg Supp, 200 MG VAGINAL HS for Infection for 3 Days, #3 SUPP 0 Refills Prov:Eric Marvin MD R1 05/26/17 Acetaminophen (Tylenol) 325 Mg Tab, 650 MG PO Q6H Y for PAIN SCALE 1 TO 4, #20 TAB 0 Refills Prov:Rachel Livingston DO 02/27/17 Nitrofurantoin Monohydrate Macrocrystals (Macrobid) 100 Mg Cap, 100 MG PO BID for Infection for 7 Days, #14 CAP 0 Refills Prov:Rachel Livingston DO 02/27/17 Review of Systems Except as stated in HPI: all other systems reviewed are Neg Physical Exam Narrative GENERAL: Well-nourished, well-developed patient. SKIN: Warm and dry. HEAD: Normocephalic and atraumatic. EYES: No scleral icterus. No injection or drainage. ENT: No nasal drainage noted. Mucous membranes pink. Airway patent. NECK: Supple, trachea midline. No JVD. CARDIOVASCULAR: Regular rate and rhythm without murmurs, gallops, or rubs. RESPIRATORY: Breath sounds equal bilaterally. No accessory muscle use. BREASTS: Bilateral exam showed no masses , no retractions, no nipple discharge. ABDOMEN/GI: Abdomen soft, non-tender, bowel sounds present, no rebound, no guarding Gravid GENITOURINARY: External Genitalia: intact and normal in appearance. Normal BUS. No cervical or vaginal masses noted. SVE 4-5/80/-2 with a stretchy cervix. Physiologic discharge, grossly normal rugate FHT's: heart tones are in the EXTREMITIES: No cyanosis or edema. BACK: Nontender without obvious deformity. No CVA tenderness. NEUROLOGICAL/musculoskeletal: Awake and alert. Motor and sensory grossly within normal limits. Grossly normal muscle strength in all muscle groups. Normal speech. Grossly normal range of motion, gait not assessed Psychiatric: Grossly normal memory and affect MDM Plan Assessment/plan: 1. IUP at 39.2 2. Active labor: We will admit the patient for labor at term. Will manage expectantly at this time. Discussed the risks of including shoulder dystocia which is an obstetrical emergency and has potential risks of the and mother as well as the risks and indications of section. We discussed the risks that include pain, infection, bleeding, injury to other organs like bladder/bowel/nerves/vessels, injury to the baby, need for repeat operation, need for hysterectomy, need for blood transfusion, wound infection/ breakdown, and other possible complications. We discussed that this baby is likely larger than her previous however per ultrasound report with a normal weight. Ultrasound on 06/23/17 was estimated weight 2407 g, 5 lbs. 4 oz. All the patient's questions were answered and we will proceed with admission. 3. Obesity 4. History of marijuana use: UDS tonight 5. GBS negative 6. history of PPROM with loss at 22-23 weeks 7. history of SGA delivery, 8. trichomonas 9. late care 10. ascus Pap 11. Rh negative Vicenta Jackson MD Jul 25, 2017 23:52
[2017-07-26] VITALS (185 sets, daily range): BP systolic 98–160; BP diastolic 47–93; PULSE 73–163; RESP 16–22; TEMP 98.2–100; O2SAT 99–100
[2017-07-26] MEDS ORDERED: SODIUM CHLORID 0.9% 500 ML INJ 500 ML IV PRN
[2017-07-26] MEDS ORDERED: LIDOCAINE HCL 1% 50 ML VIAL I-DERMAL PRN
[2017-07-26] MEDS ORDERED: DEXTROSE 5%-LACTATED RING INJ 1,000 ML IV ONE
[2017-07-26] MEDS ORDERED: LACTATED RINGER'S 1000 ML INJ 1,000 ML IV PRN
[2017-07-26] MEDS ORDERED: LIDOCAINE HCL 1% 50 ML VIAL INFIL PRN
[2017-07-26] MEDS ORDERED: MINERAL OIL 10 ML VIAL TOPICAL PRN
[2017-07-26] MEDS ORDERED: FERR325T18 PO (00:12)
[2017-07-26] MEDS ORDERED: fentaNYL 2MCG-BUPIV 0.125% INJ 150 ML EPIDURAL ONE (00:13)
[2017-07-26] MEDS ORDERED: SODIUM CHLOR 0.9% 1000 ML INJ 1,000 ML IV PRN (00:20)
[2017-07-26 00:25] LABS: AUTOMATED NEUTROPHIL # 8.7 TH/MM3 (1.8-7.7); BASOPHIL # 0.1 TH/MM3 (0-0.2); BASOPHIL % 0.6 % (0.0-2.0); EOSINOPHIL # 0.1 TH/MM3 (0-0.4); EOSINOPHIL % 1.1 % (0.0-4.0); HEMATOCRIT 34.5 % (35.0-46.0); HEMOGLOBIN 10.9 GM/DL (11.6-15.3); LYMPH % 22.5 % (9.0-44.0); MEAN CELL VOLUME 72.9 FL (80.0-100.0); MEAN CORPUSCULAR HEMOGLOBIN 23.1 PG (27.0-34.0); MEAN CORPUSCULAR HGB CONC 31.7 % (32.0-36.0); MEAN PLATELET VOLUME 8.2 FL (7.0-11.0); MONO % 9.4 % (0.0-8.0); MONOCYTE # 1.2 TH/MM3 (0-0.9); NEUT % 66.4 % (16.0-70.0); PLATELET COUNT 267 TH/MM3 (150-450); RED BLOOD COUNT 4.74 MIL/MM3 (4.00-5.30); RED CELL DISTRIBUTION WIDTH 16.5 % (11.6-17.2); WHITE BLOOD COUNT 13.1 TH/MM3 (4.0-11.0)
--- NOTE | 2017-07-26 00:25 | HHI.HP ---
History & Physical H&P Patient Name: Roma Jackson Unit Number: [id number] Date of : 1995 Patient Status: Admitted Inpatient Attending Doctor: Vicenta Jackson MD HPI HPI Chief Complaint Contractions Travel History International Travel<30 Days: No Contact w/Intl Traveler<30Days: No Known Affected Area: No History of Present Illness HPI 22-year-old , IUP at 39.2 care complicated by obesity, history of PPROM with loss at 22-23 weeks , history of SGA delivery, trichomonas, late care, ascus Pap, marijuana use The patient presents complaining of the onset of painful contractions at about 830 tonight. She repeat reports they have increased in intensity and frequency since that time. There are no aggravating or alleviating factors and no attempted treatments. She reports that she is feeling extremely painful contractions every 10-15 minutes. She reports good movement. She denies any leaking of fluid or vaginal bleeding. Weeks Gestation: 39 Para: 1 : 3 History (Limited) History Past Medical History Narrative Medical Obesity Obstetric History Obstetric History 1 4 lbs. 15 oz. at 37 weeks P PROM at 22-23 weeks with demise/stillborn Past Surgical History Surgical History: No Previous Surgery Family History Narrative Family History DM, liver disease Social History Alcohol Use: No Tobacco Use: No (DC 2 years ago) Substance Abuse: Yes (Maria Elena) Allergies-Medications Allergies-Medications (Allergen,Severity, Reaction): Coded Allergies: *MDRO Multi-Drug Resistant Organism (Verified Allergy, Unknown, 07/26/17) MRSA 2013 No Known Allergies (Verified Allergy, Unknown, 07/26/17) Home Meds Active Scripts Vit-Iron Carbonyl ( Plus Iron 29-1 mg) 29 Mg Iron-1 Mg Tab, 1 TAB PO DAILY for Nutritional Supplement, #30 TAB 0 Refills Prov:Eric Marvin MD R1 05/26/17 Reported Medications Ferrous Sulfate (Ferrous Sulfate) 325 Mg (65 Mg Iron) Tablet, 325 MG PO BIDPC for Nutritional Supplement, #60 TAB 0 Refills 07/26/17 Discontinued Scripts Miconazole 3 Vaginal Supp (Miconazole 3 Vaginal Supp) 200 Mg Supp, 200 MG VAGINAL HS for Infection for 3 Days, #3 SUPP 0 Refills Prov:Eric Marvin MD R1 05/26/17 Acetaminophen (Tylenol) 325 Mg Tab, 650 MG PO Q6H Y for PAIN SCALE 1 TO 4, #20 TAB 0 Refills Prov:Rachel Livingston DO 02/27/17 Nitrofurantoin Monohydrate Macrocrystals (Macrobid) 100 Mg Cap, 100 MG PO BID for Infection for 7 Days, #14 CAP 0 Refills Prov:Rachel Livingston DO 02/27/17 ROS Review of Systems Except as stated in HPI: all other systems reviewed are Neg Physical Exam Physical Exam Narrative GENERAL: Well-nourished, well-developed patient. SKIN: Warm and dry. HEAD: Normocephalic and atraumatic. EYES: No scleral icterus. No injection or drainage. ENT: No nasal drainage noted. Mucous membranes pink. Airway patent. NECK: Supple, trachea midline. No JVD. CARDIOVASCULAR: Regular rate and rhythm without murmurs, gallops, or rubs. RESPIRATORY: Breath sounds equal bilaterally. No accessory muscle use. BREASTS: Bilateral exam showed no masses , no retractions, no nipple discharge. ABDOMEN/GI: Abdomen soft, non-tender, bowel sounds present, no rebound, no guarding Gravid GENITOURINARY: External Genitalia: intact and normal in appearance. Normal BUS. No cervical or vaginal masses noted. SVE 4-5/80/-2 with a stretchy cervix. Physiologic discharge, grossly normal rugate FHT's: heart tones are in the EXTREMITIES: No cyanosis or edema. BACK: Nontender without obvious deformity. No CVA tenderness. NEUROLOGICAL/musculoskeletal: Awake and alert. Motor and sensory grossly within normal limits. Grossly normal muscle strength in all muscle groups. Normal speech. Grossly normal range of motion, gait not assessed Psychiatric: Grossly normal memory and affect Data Data [facility] Plan Assessment/plan: 1. IUP at 39.2 2. Active labor: We will admit the patient for labor at term. Will manage expectantly at this time. Discussed the risks of including shoulder dystocia which is an obstetrical emergency and has potential risks of the and mother as well as the risks and indications of section. We discussed the risks that include pain, infection, bleeding, injury to other organs like bladder/bowel/nerves/vessels, injury to the baby, need for repeat operation, need for hysterectomy, need for blood transfusion, wound infection/ breakdown, and other possible complications. We discussed that this baby is likely larger than her previous however per ultrasound report with a normal weight. Ultrasound on 06/23/17 was estimated weight 2407 g, 5 lbs. 4 oz. All the patient's questions were answered and we will proceed with admission. 3. Obesity 4. History of marijuana use: UDS tonight 5. GBS negative 6. history of PPROM with loss at 22-23 weeks 7. history of SGA delivery, 8. trichomonas 9. late care 10. ascus Pap 11. Rh negative Vicenta Jackson MD Jul 25, 2017 23:52 Vicenta Jackson MD Jul 26, 2017 00:25
[2017-07-26 00:31] LABS: BACTERIA, URINE OCC /hpf; BILIRUBIN, URINE NEG (NEG); BLOOD, URINE NEG (NEG); CALCIUM OXALATE CRYSTALS,URINE OCC /hpf; GLUCOSE,URINE NEG (NEG); KETONE, URINE TRACE mg/dL (NEG); MUCUS URINE MOD /lpf (OCC); NITRITE,URINE NEG (NEG); SQUAMOUS EPITHELIAL CELL URINE 2 /hpf (0-5); URINE COLOR YELLOW (YELLW/STRAW); URINE LEUKOCYTE ESTERASE LARGE (NEG)
[2017-07-26] MEDS ORDERED: ePHEDrine/NS 25 MG/5 ML SYRINGE IV PUSH PRN (01:15)
[2017-07-26] MEDS ORDERED: NO SYSTEM NARCOTICS PRN (01:15)
[2017-07-26] MEDS ORDERED: DO NOT ADMINISTER ANTICOAGULANTS PRN (01:15)
[2017-07-26] MEDS ORDERED: fentaNYL 2MCG-BUPIV 0.125% 150 ML EPIDURAL PRN (01:15)
[2017-07-26] MEDS: LACTATED RINGER'S 1000 ML INJ 1,000 ML IV SCH ×3 (01:16→14:40)
[2017-07-26] MEDS ORDERED: TERBUTALINE INJ 1 MG/ML AMP ONE (06:44)
--- NOTE | 2017-07-26 06:52 | HHI.PR ---
Subjective Remarks OBHG S: patient comfortable, resting O: VSS AF [place]is[place]: q 1-2 minutes FHR: 160s, moderate LTV, good accels, see below SVE: 8/80/-2 A/P: 1. IUP at 39.3 2. Active labor: expectant management for now 3. GBS negative 4. Rh negative 5. Obesity 6. FHR currently reassuring: will monitor closely. Overnight the patient had a 6-7 minute FHR deceleration at 0355 with drop to , the patient was repositioned with spontaneous resolution. The patient had a second deceleration to the 100s- 110s for 3-4 minutes at 0615. I was notified and presented to bedside for a deceleration at 640 that was 3-4 minutes total with drop to 110s Each deceleration has been associated with either q 1 minute contractions, a tetanic contraction, or q 1 minute contractions without apparent return of uterine tone to baseline. Patient was examined, given 0.25mg terbutaline, Oxygen administered , and an IVF bolus ordered. After verbal consent for internal monitoring, an IUPC was placed without difficulty and a FSE placed. Will administer amnioinfusion and continue oxygen for now. Discussed with the patient that should she continue having decelerations, we would proceed with delivery. All of her questions were answered and the patient is in agreement with the plan. We will continue to monitor closely. Objective Vital Signs Date Time Temp Pulse Resp B/P (MAP) Pulse Ox O2 Delivery O2 Flow Rate FiO2 07/26/17 06:20 16 07/26/17 06:16 88 108/73 (85) 07/26/17 06:15 99 100 07/26/17 06:15 16 07/26/17 06:10 101 100 07/26/17 06:05 98 100 07/26/17 06:01 96 110/58 (75) 07/26/17 06:00 18 07/26/17 06:00 99 100 07/26/17 06:00 98.2 07/26/17 05:55 101 100 07/26/17 05:50 99 07/26/17 05:50 100 07/26/17 05:46 91 111/62 (78) 07/26/17 05:45 83 07/26/17 05:45 18 100 07/26/17 05:40 100 6/17/18 05:40 82 6/17/18 05:35 86 6/17/18 05:35 100 6/17/18 05:31 76 112/56 (74) 6/17/18 05:30 18 100 6/17/18 05:30 88 6/17/18 05:16 82 106/48 (67) 617/18 05:15 18 6/17/18 05:15 84 6/17/18 05:10 85 6/17/18 05:05 80 6/17/18 05:01 84 106/55 (72) 617/18 05:00 82 16 6/17/18 04:55 86 6/17/18 04:50 84 6/17/18 04:46 81 113/50 (71) 617/18 04:45 88 16 6/17/18 04:40 92 6/17/18 04:35 79 6/17/18 04:31 73 102/47 (65) 617/18 04:30 82 16 6/17/18 04:25 80 6/17/18 04:23 86 112/55 (74) 6/17/18 04:20 93 100 6/17/18 04:19 89 134/58 (83) 6/17/18 04:00 98.8 6/17/18 03:55 94 99 6/17/18 03:50 93 100 6/17/18 03:45 86 100 6/17/18 03:40 116 100 6/17/18 03:35 88 100 6/17/18 03:30 94 100 6/17/18 03:25 91 100 6/17/18 03:20 89 100 6/17/18 03:15 87 100 6/17/18 03:10 88 100 6/17/18 03:05 91 100 6/17/18 03:00 85 100 6/17/18 02:55 100 100 6/17/18 02:50 91 100 6/17/18 02:45 89 100 6/17/18 02:33 18 6/17/18 02:30 89 6/17/18 02:25 91 6/17/18 02:20 98 6/17/18 02:15 94 6/17/18 02:15 104 137/93 (108) 6/17/18 02:10 95 6/17/18 02:05 93 6/17/18 02:01 99 116/66 (83) 6/18 02:00 99 6/17/18 01:55 94 6/17/18 01:50 90 6/17/18 01:45 16 6/17/18 01:45 90 122/66 (84) 17/18 01:45 92 6/17/18 01:40 97 617/18 01:35 102 17/18 01:31 163 109/51 (70) 17/18 01:30 98 6/17/18 01:30 16 6/17/18 01:25 93 6/17/18 01:20 92 6/17/18 01:19 100 128/63 (84) 07/26/18 01:16 99 120/65 (83) 07/26/18 01:15 18 07/26/18 01:15 96 07/26/18 01:10 106 07/26/18 01:10 106 133/63 (86) 07/26/18 01:08 111 126/59 (81) 07/26/18 01:05 99 07/26/18 01:01 102 147/74 (98) 07/26/18 01:00 114 07/26/18 01:00 18 07/26/18 00:55 107 07/26/18 00:55 106 152/73 (99) 07/26/18 00:51 112 143/81 (101) 17/18 00:50 112 17/18 00:49 114 147/78 (101) 07/26/18 00:46 104 150/80 (103) 17/18 00:45 103 6/17/18 00:45 18 17/18 00:40 112 100 617/18 00:39 112 150/84 (106) 07/26/18 00:35 128 100 17/18 00:30 132 100 617/18 00:25 119 617/18 00:24 118 160/90 (113) Result Diagram: 07/26/17 0010 Vicenta Jackson MD Jul 26, 2017 06:52
[2017-07-26] MEDS ORDERED: TERBUTALINE INJ 1 MG/ML AMP SQ ONE (08:30)
[2017-07-26] MEDS ORDERED: OXYTOCIN 30 UNITS-500ML PREMIX 500 ML IV PRN ×2 (09:15→20:45)
[2017-07-26] MEDS ORDERED: OXYTOCIN 10 UNIT/ML AMP IV ONE (12:00)
[2017-07-26] MEDS ORDERED: KETOROLAC TROMETHAMINE 30 MG/ML (IVP) VIAL IV PUSH ONE (12:00)
[2017-07-26] MEDS ORDERED: PHENYLEPH/NS 1000 MCG/10 ML SYR IV ONE (12:00)
[2017-07-26] MEDS ORDERED: ONDANSETRON HCL 4 MG/2 ML VIAL IV ONE (12:00)
[2017-07-26] MEDS ORDERED: PROPOFOL 200 MG/20 ML AMP IV ONE (12:00)
[2017-07-26] MEDS ORDERED: ceFAZolin INJ 1,000 MG VIAL IV ONE (12:00)
[2017-07-26] MEDS ORDERED: LACTATED RINGER'S 1000 ML INJ 1,000 ML IV ONE ×2 (12:00→14:10)
[2017-07-26] MEDS ORDERED: LIDOCAINE 2%/EPINEPHrine PF 1:200,000 20ML SDV OTHER ONE (12:00)
[2017-07-26] MEDS ORDERED: MORPHINE SULFATE PF 5 MG/10 ML VIAL ONE (14:20)
[2017-07-26] MEDS ORDERED: SODIUM BICARBONATE 8.4% INJ 50 ML ONE (14:20)
[2017-07-26] MEDS ORDERED: METHYLERGONOVINE MALEATE 0.2 MG/ML VIAL ONE (14:51)
[2017-07-26] MEDS ORDERED: ceFAZolin 2 GM PREMIX 50 ML IV SCH (15:15)
[2017-07-26] MEDS ORDERED: CITRIC ACID-SODIUM CITRATE LIQ 30 ML UDC PO SCH ×2 (15:45)
[2017-07-26] MEDS ORDERED: OXYTOCIN 30 UNITS-500ML PREMIX 500 ML IV ONE ×2 (15:45)
[2017-07-26] MEDS ORDERED: oxyCODONE/ACETAMINOPHEN 5 MG/325 MG TAB PO PRN (15:45)
[2017-07-26] MEDS ORDERED: KETOROLAC TROMETHAMINE 60 MG/2 ML (IM) VIAL IM PRN (15:45)
[2017-07-26] MEDS ORDERED: SODIUM CHLORIDE 0.9% FLUSH 10 ML FLUSH IV FLUSH PRN (15:45)
[2017-07-26] MEDS ORDERED: ZOLPIDEM TARTRATE 5 MG TAB PO PRN (15:45)
[2017-07-26] MEDS ORDERED: ACETAMINOPHEN 325 MG TAB PO PRN (15:45)
[2017-07-26] MEDS ORDERED: ONDANSETRON ODT 4 MG TAB PO PRN (15:45)
[2017-07-26] MEDS ORDERED: ACETAMINOPHEN 1000 MG/100 ML 100 ML IV ONE (16:12)
--- NOTE | 2017-07-26 17:24 | MP ---
cc: Vikas Coughlin MD DATE OF OPERATION: 07/26/2017 PREOPERATIVE DIAGNOSES: Term intrauterine , failure to progress and nonreassuring heart rate tracing. POSTOPERATIVE DIAGNOSES: Term intrauterine , failure to progress and nonreassuring heart rate tracing. PROCEDURE PERFORMED: Primary low transverse section. SURGEON: Vikas Coughlin MD ANESTHESIA: Epidural. INDICATIONS FOR PROCEDURE: The patient is a 22-year-old black female, G3, P1, A1, at 39 weeks, who presented with contractions in the late evening. She was augmented and progressed to approximately 8 cm, where she had a failure to progress and was not able to run Pitocin adequately due to a nonreassuring heart rate tracing with repetitive late decelerations. When she would contract more than every other minute or so, she quit she would decelerate, so we cannot use Pitocin effectively and she made no progress after 7-8 cm. She was watched for several hours and made no progress and it is felt that failure to progress was noted and the nonreassuring heart rate tracing moved us to a transabdominal delivery. DESCRIPTION OF PROCEDURE: The patient was taken to the operating room and placed supine position on the operating table. Adequate epidural anesthesia, she was prepped and draped for abdominal surgery. A Pfannenstiel incision was made in the lower abdomen and carried to fascia sharply. The fascia was taken off the rectus muscle, the rectus split in the midline. The peritoneal cavity entered sharply. The incision extended superior and inferiorly. The bladder was placed on the bladder blade and the visceral peritoneum reflected off the lower uterine segment and placed on the bladder blade as well. The transverse hysterotomy was made, extended bluntly bilaterally and a large amount of clear fluid noted at that time. The was delivered at 2:58 p.m. from a vertex presentation, Apgars 9 and 9, weight 3325 grams. It was a female. The cord pH 7.32. There were no complications. Delayed cord clamping was done and the cord blood was obtained. Also, the placenta was cultured on its maternal and surfaces and the endometrial cultures done as well. The placenta was sent to pathology. The hysterotomy was closed in a running layer of 0 Chromic, followed by imbricating suture same. Hemostasis achieved with several stick ties of chromic. The bladder was reapproximated with a running stitch of 2-0 Vicryl. The uterus elevated, noted to have some filmy adhesions of the omentum, probably from old pelvic infections. These adhesions were lysed with Bovie cautery without difficulty. The uterus is elevated. Ovaries were normal. Tubes are normal. Blood suctioned to cul-de-sac gutters. The uterus was replaced cavity. The parietal peritoneum closed with running layer 2-0 Vicryl. Muscle reapproximated with stick ties of Chromic. Fascia closed in running layer of 0 Vicryl. Subcutaneous tissues also brought together with 2-0 plain catgut suture in a running fashion. Skin closed with 3-0 Monocryl subcuticular stitch. A pressure dressing applied. There were no complications. Sponge and needle correct x 2. ESTIMATED BLOOD LOSS: 500 mL. DISPOSITION: The patient to recovery in stable condition. MD ROOSEVELT Ruiz/SAMIR , 03:42 PM , 05:23 PM
[2017-07-26] MEDS ORDERED: EPIDURAL-DIPHENHYDRAMINE HCL 50 MG CAP PO PRN (17:45)
[2017-07-26] MEDS ORDERED: EPIDURAL-DO NOT ADMINISTER ANTICOAGULANTS PRN (17:45)
[2017-07-26] MEDS ORDERED: EPIDURAL-NALOXONE HCL 0.4 MG/ML AMP IV PUSH PRN (17:45)
[2017-07-26] MEDS ORDERED: EPIDURAL-DIPHENHYDRAMINE HCL 50 MG/ML VIAL IV PUSH PRN (17:45)
[2017-07-26] MEDS ORDERED: EPIDURAL-NO SYSTEMIC NARCOTICS PRN (17:45)
[2017-07-26] MEDS ORDERED: LACTATED RINGER'S 1000 ML INJ 1,000 ML IV SCH (20:42)
[2017-07-26] MEDS: oxyCODONE/ACETAMINOPHEN 5 MG/325 MG TAB PO PRN (22:04)
[2017-07-26] MEDS ORDERED: CEFAZOLIN INJ 2,000 MG in SODIUM CHLORIDE 0.9% INJ 100 ML IV SCH (23:00)
[2017-07-27] VITALS (11 sets, daily range): BP systolic 98–126; BP diastolic 58–75; PULSE 106–118; RESP 18–20; TEMP 98.4–98.9; O2SAT 98–100
[2017-07-27] MEDS: ceFAZolin 2 GM PREMIX 50 ML IV SCH ×2 (00:06→07:17)
[2017-07-27] MEDS: oxyCODONE/ACETAMINOPHEN 5 MG/325 MG TAB PO PRN ×5 (02:12→21:12)
[2017-07-27] MEDS: LACTATED RINGER'S 1000 ML INJ 1,000 ML IV SCH ×2 (04:00→10:40)
[2017-07-27] MEDS: IBUPROFEN 600 MG TAB PO PRN ×3 (04:46→16:59)
[2017-07-27 05:54] LABS: AUTOMATED NEUTROPHIL # 12.9 TH/MM3 (1.8-7.7); BASOPHIL % 0.2 % (0.0-2.0); EOSINOPHIL # 0.1 TH/MM3 (0-0.4); EOSINOPHIL % 0.6 % (0.0-4.0); HEMATOCRIT 22.2 % (35.0-46.0); HEMOGLOBIN 7.1 GM/DL (11.6-15.3); LYMPHOCYTE # 2.2 TH/MM3 (1.0-4.8); MEAN CELL VOLUME 73.8 FL (80.0-100.0); MEAN CORPUSCULAR HEMOGLOBIN 23.5 PG (27.0-34.0); MEAN CORPUSCULAR HGB CONC 31.8 % (32.0-36.0); MEAN PLATELET VOLUME 8.3 FL (7.0-11.0); MONOCYTE # 1.5 TH/MM3 (0-0.9); NEUT % 77.2 % (16.0-70.0); PLATELET COUNT 199 TH/MM3 (150-450); RED CELL DISTRIBUTION WIDTH 16.8 % (11.6-17.2); WHITE BLOOD COUNT 16.8 TH/MM3 (4.0-11.0)
[2017-07-27] MEDS ORDERED: SODIUM CHLOR 0.9% 250 ML INJ 250 ML IV ONE (07:45)
[2017-07-27] MEDS: SODIUM CHLORIDE 0.9% FLUSH 10 ML FLUSH IV FLUSH SCH (09:00)
[2017-07-27] MEDS: diphenhydrAMINE HCL 25 MG CAP PO PRN ×2 (09:47→15:18)
--- NOTE | 2017-07-27 09:59 | HHI.OB ---
Subjective Remarks Postoperative day number 1. Patient was tachycardic overnight in the 100's, all other VS wnl. Pain controlled with medications. Incision not draining. Decreased lochia. Denies dysuria. No breast tenderness. Appetite good. No nausea or vomiting. Endorses flatus. No bowel movement. Ambulating well but did report some dizziness. Denies calf pain, shortness of breath, or cough. Otherwise, she is doing well this morning and has no other complaints. Objective Vitals/I&O Vital Signs Date Time Temp Pulse Resp B/P (MAP) Pulse Ox O2 Delivery O2 Flow Rate FiO2 07/27/17 04:51 98.7 108 18 108/60 (76) 07/27/17 00:00 98.4 07/27/17 00:00 106 18 101/58 (72) 07/26/17 21:00 99.3 07/26/17 21:00 109 16 124/62 (82) 07/26/17 17:25 108 18 105/57 (73) 07/26/17 16:45 111 18 114/58 (76) 100 07/26/17 16:30 109 18 141/66 (91) 100 07/26/17 16:15 122 18 140/57 (84) 100 07/26/17 16:00 130 143/63 (89) 100 07/26/17 16:00 18 07/26/17 15:45 100 07/26/17 15:45 131 20 158/70 (99) 07/26/17 15:45 98.4 07/26/17 14:15 18 07/26/17 14:10 128 07/26/17 14:05 130 07/26/17 14:01 109 121/49 (73) 07/26/17 14:00 18 07/26/17 14:00 119 18 13:55 115 18 13:50 118 18 13:46 131 155/71 (99) 07/26/17 13:45 123 18 13:45 99.6 18 13:40 121 18 13:35 120 18 13:31 114 149/68 (95) 07/26/17 13:30 120 07/26/17 13:25 119 6/17/18 13:20 120 6/17/18 13:16 114 144/75 (98) 18 13:15 118 07/26/18 13:10 118 07/26/18 13:05 118 18 13:01 119 138/81 (100) 18 13:00 18 618 13:00 121 1718 12:59 99.3 18 12:55 120 18 12:54 118 145/83 (103) 18 12:50 121 17/18 12:46 126 155/72 (99) 18 12:45 124 18 12:40 129 18 12:35 123 18 12:31 122 138/65 (89) 18 12:30 122 20 18 12:25 126 18 12:20 122 18 12:16 126 125/87 (100) 07/26/17 12:15 123 18 12:10 129 18 12:05 135 18 12:01 133 144/91 (108) 07/26/17 12:00 20 18 12:00 140 18 11:50 111 18 11:46 113 98/70 (79) 18 11:45 108 07/26/18 11:40 18 18 11:35 103 18 11:31 103 105/68 (80) 18 11:30 96 07/26/18 10:56 99.0 20 18 10:46 132 134/64 (87) 18 10:31 119 125/59 (81) 18 10:16 129 144/53 (83) 18 10:10 134 17/18 10:01 127 149/63 (91) 18 10:00 20 617/18 10:00 125 Objective Remarks GENERAL: Well-nourished, well-developed patient. CARDIOVASCULAR: Tachycardic to the 100's, regular rhythm without murmurs, gallops, or rubs. RESPIRATORY: Breath sounds equal bilaterally. No accessory muscle use. ABDOMEN/GI: Abdomen soft, non-tender. Fundus: Firm, non-tender at umbilicus. GENITOURINARY: Light to moderate bleeding. EXTREMITIES: No cyanosis or edema, non-tender, without signs of DVT. Medications and IVs Current Medications Medications (Trade) Dose Ordered Sig/Anselmo Route Start Time Stop Time Status Last Admin Lactated Ringer's 1,000 ml @ 3,000 mls/hr Q20M PRN IV 07/26/17 00:00 07/26/17 07:41 Sodium Chloride 500 ml @ 1,000 mls/hr ONCE PRN IV 07/26/17 00:00 Sodium Chloride 1,000 ml @ 100 mls/hr Q10H PRN IV 07/26/17 00:20 (Xylocaine 1% Inj (50 ml)) 0.1 ml UNSCH X1 PRN I-DERMAL 07/26/17 00:00 07/28/17 23:59 (Bicitra Liq) 30 ml ORACLE ETL DEVELOPER PO 07/26/17 00:00 07/29/17 23:59 (Xylocaine 1% Inj (50 ml)) 10 ml UNSCH X1 PRN INFIL 07/26/17 00:00 07/27/17 23:59 (Muri-Lube Oil) 10 ml UNSCH PRN TOPICAL 07/26/17 00:00 Fentanyl/ Bupivacaine/ Sodium Chlor 150 ml @ 0 mls/hr TITRATE PRN EPIDURAL 07/26/17 01:15 Oxytocin 500 ml @ 0 mls/hr TITRATE PRN IV 07/26/17 09:15 Lactated Ringer's 1,000 ml @ 150 mls/hr Q6H40M IV 07/26/17 14:40 07/26/17 14:40 Cefazolin Sodium/ Dextrose 50 ml @ 100 mls/hr ORACLE ETL DEVELOPER IV 07/26/17 15:15 07/30/17 15:14 07/26/17 18:56 (Bicitra Liq) 30 ml ORACLE ETL DEVELOPER PO 07/26/17 15:45 07/30/17 15:44 Lactated Ringer's 1,000 ml @ 100 mls/hr Q10H IV 07/26/17 20:42 07/27/17 16:41 Oxytocin 500 ml @ 100 mls/hr UNSCH X1 PRN IV 07/26/17 20:45 07/27/17 20:44 (NS Flush) 2 ml BID IV FLUSH 07/26/17 21:00 (NS Flush) 2 ml UNSCH PRN IV FLUSH 07/26/17 15:45 (Mylicon Chew) 80 mg QID PRN PO 07/26/17 15:45 (Tylenol) 650 mg Q6H PRN PO 07/26/17 15:45 (Motrin) 600 mg Q6H PRN PO 07/26/17 15:45 07/27/17 04:46 (Toradol Inj) 60 mg UNSCH X1 PRN IM 07/26/17 15:45 07/27/17 15:44 07/26/17 22:04 (Percocet 5-325 Mg) 1 tab Q4H PRN PO 07/26/17 15:45 (Percocet 5-325 Mg) 2 tab Q4H PRN PO 07/26/17 15:45 07/27/17 06:20 (Rosy-Colace) 2 tab Q12H PRN PO 07/26/17 15:45 (Ambien) 5 mg HS PRN PO 07/26/17 15:45 (M-M-R Ii Inj) 0.5 ml ONCE ONCE SQ 07/27/17 16:00 07/27/17 16:01 (Boostrix Inj) 0.5 ml ONCE ONCE IM 07/27/17 16:00 07/27/17 16:01 (Zofran Odt) 4 mg Q6H PRN PO 07/26/17 15:45 ([facility] [place] [facility]) NO SYSTEMIC NARCOTICS TO BE GIVEN FO... UNSCH PRN .XX 07/26/17 17:45 07/27/17 17:44 (Narcan Inj) 0.4 mg UNSCH PRN IV PUSH 07/26/17 17:45 07/27/17 17:44 (Benadryl Inj) 25 mg Q6H PRN IV PUSH 07/26/17 17:45 07/27/17 17:44 (Benadryl) 50 mg Q6H PRN PO 07/26/17 17:45 07/27/17 17:44 ([facility] [place] [facility]) ALL NURSING DEPARTMENTS UNSCH PRN .XX 07/26/17 17:45 07/27/17 17:44 Sodium Chloride 250 ml @ 15 mls/hr ONCE ONCE IV 07/27/17 07:45 07/28/17 00:24 (Benadryl) 25 mg Q4H PRN PO 07/27/17 07:45 07/27/17 09:47 Assessment/Plan Assessment and Plan 22 y/o female who is POD# 1 s/p CXN. -Post op H/H decreased at 7.1/22.2. Patient symptomatic with dizziness, will transfuse 2 units. -Continue routine care. -Tylenol and Motrin PRN pain. -Encouraged OOB. Advised pelvic rest for 6 wks. Will need a f/u appt. in 1 wk for incision check. -Re: will arrange with OB as outpatient -D/c in 1-2 days Peter Roy MD R1 Jul 27, 2017 09:59
[2017-07-27] MEDS ORDERED: MEASLES, MUMPS, RUBELLA VACCINE 0.5 ML VIAL SQ ONE (16:00)
[2017-07-27] MEDS ORDERED: DIPHTH/TETANUS/ACEL PERTUSSIS (BOOSTER) 0.5 ML VIAL/PFS IM ONE (16:00)
[2017-07-27 23:28] LABS: HEMATOCRIT 27.9 % (35.0-46.0)
[2017-07-28] MEDS: IBUPROFEN 600 MG TAB PO PRN ×2 (01:25→08:01)
[2017-07-28] MEDS: oxyCODONE/ACETAMINOPHEN 5 MG/325 MG TAB PO PRN ×6 (01:25→22:09)
[2017-07-28 05:12] LABS: HEMATOCRIT 27.7 % (35.0-46.0); MEAN CELL VOLUME 75.8 FL (80.0-100.0); MEAN CORPUSCULAR HEMOGLOBIN 24.6 PG (27.0-34.0); MEAN CORPUSCULAR HGB CONC 32.4 % (32.0-36.0); MEAN PLATELET VOLUME 8.2 FL (7.0-11.0); PLATELET COUNT 217 TH/MM3 (150-450); RED BLOOD COUNT 3.66 MIL/MM3 (4.00-5.30); RED CELL DISTRIBUTION WIDTH 17.3 % (11.6-17.2); WHITE BLOOD COUNT 15.7 TH/MM3 (4.0-11.0)
[2017-07-28] MEDS: LACTATED RINGER'S 1000 ML INJ 1,000 ML IV SCH ×2 (06:40→20:00)
[2017-07-28 08:00] VITALS: BP 126/78; PULSE 120; RESP 20; TEMP 99.2; O2SAT 96
[2017-07-28] MEDS: DOCUSATE SODIUM 50 MG/SENNA 8.6 MG TAB PO PRN ×2 (08:01→22:08)
--- NOTE | 2017-07-28 08:21 | HHI.OB ---
Subjective Remarks Patient is a 22-year-old delivered at 39 weeks and 2 days. Patient is day 2 after . Patient's pain is well-controlled but she does continue to complain of needing assistance with ambulating. Patient reports eating and drinking without any nausea or vomiting. Patient reports minimal bleeding. Patient has passed gas. She complains of urinary frequency and pain with urination. Patient is walking without lower extremity pain or shortness of breath. Patient reports desire for contraception arranged as outpatient. Objective Vitals/I&O Vital Signs Date Time Temp Pulse Resp B/P (MAP) Pulse Ox O2 Delivery O2 Flow Rate FiO2 07/28/17 08:00 99.2 120 20 126/78 (94) 96 07/27/17 19:42 98.9 115 20 123/72 (89) 07/27/17 15:53 98.6 109 20 119/64 99 07/27/17 15:28 98.4 111 18 105/61 100 07/27/17 15:25 98.4 111 18 105/61 (76) 100 07/27/17 11:14 98.5 118 20 98/75 98 07/27/17 11:00 98.9 112 20 101/69 99 07/27/17 10:45 98.8 112 20 126/71 07/27/17 10:40 98.8 112 20 126/71 (89) 07/27/17 10:40 99 07/27/17 10:32 98.8 112 20 126/71 Objective Remarks GENERAL: Well-nourished, well-developed patient. CARDIOVASCULAR: Tachycardic to the 100's, regular rhythm without murmurs, gallops, or rubs. RESPIRATORY: Breath sounds equal bilaterally. No accessory muscle use. ABDOMEN/GI: Abdomen soft, non-tender. Fundus: Firm, non-tender at umbilicus. GENITOURINARY: Light to moderate bleeding. EXTREMITIES: No cyanosis or edema, non-tender, without signs of DVT. Medications and IVs Current Medications Medications (Trade) Dose Ordered Sig/Anselmo Route Start Time Stop Time Status Last Admin Lactated Ringer's 1,000 ml @ 3,000 mls/hr Q20M PRN IV 07/26/17 00:00 07/26/17 07:41 Sodium Chloride 500 ml @ 1,000 mls/hr ONCE PRN IV 07/26/17 00:00 Sodium Chloride 1,000 ml @ 100 mls/hr Q10H PRN IV 07/26/17 00:20 (Xylocaine 1% Inj (50 ml)) 0.1 ml UNSCH X1 PRN I-DERMAL 07/26/17 00:00 07/28/17 23:59 (Bicitra Liq) 30 ml SODA CLERK PO 07/26/17 00:00 07/29/17 23:59 (Muri-Lube Oil) 10 ml UNSCH PRN TOPICAL 07/26/17 00:00 Fentanyl/ Bupivacaine/ Sodium Chlor 150 ml @ 0 mls/hr TITRATE PRN EPIDURAL 07/26/17 01:15 Oxytocin 500 ml @ 0 mls/hr TITRATE PRN IV 07/26/17 09:15 Lactated Ringer's 1,000 ml @ 150 mls/hr Q6H40M IV 07/26/17 14:40 07/26/17 14:40 Cefazolin Sodium/ Dextrose 50 ml @ 100 mls/hr SODA CLERK IV 07/26/17 15:15 07/30/17 15:14 07/26/17 18:56 (Bicitra Liq) 30 ml SODA CLERK PO 07/26/17 15:45 07/30/17 15:44 (NS Flush) 2 ml BID IV FLUSH 07/26/17 21:00 (NS Flush) 2 ml UNSCH PRN IV FLUSH 07/26/17 15:45 (Mylicon Chew) 80 mg QID PRN PO 07/26/17 15:45 (Tylenol) 650 mg Q6H PRN PO 07/26/17 15:45 (Motrin) 600 mg Q6H PRN PO 07/26/17 15:45 07/28/17 08:01 (Percocet 5-325 Mg) 1 tab Q4H PRN PO 07/26/17 15:45 (Percocet 5-325 Mg) 2 tab Q4H PRN PO 07/26/17 15:45 07/28/17 06:05 (Rosy-Colace) 2 tab Q12H PRN PO 07/26/17 15:45 07/28/17 08:01 (Ambien) 5 mg HS PRN PO 07/26/17 15:45 (Zofran Odt) 4 mg Q6H PRN PO 07/26/17 15:45 Ceftriaxone Sodium 1000 mg/ Sodium Chloride 100 ml @ 200 mls/hr Q24H IV 07/28/17 08:30 UNV Assessment/Plan Assessment and Plan 22 y/o female who is POD# 2 s/p CXN. -Post op H/H decreased at 7.1/22.2. Patient was transfused 2 units with an increase H/H to 9.1/28.4 -UA on admission with large leukocyte esterase, 44 WBC. Cultures growing mixed laney. Will treat with 1 g Rocephin IV every 24 hours as patient is symptomatic with urinary frequency and dysuria. -Continue routine care. -Percocet and Motrin PRN pain. -Encouraged OOB. Advised pelvic rest for 6 wks. Will need a f/u appt. in 1 wk for incision check. -Re: will arrange with OB as outpatient -D/c likely tomorrow Peter Roy MD R1 Jul 28, 2017 08:21
[2017-07-28] MEDS ORDERED: cefTRIAXone INJ 1,000 MG in SODIUM CHLORIDE 0.9% INJ 100 ML IV SCH (09:00)
[2017-07-28] MEDS: SULFAMETHOXAZOLE-TRIMETHOPRIM DS 800-160 MG TAB PO SCH ×2 (11:57→22:08)
[2017-07-28] MEDS: IBUPROFEN 800 MG TAB PO SCH ×2 (14:01→22:08)
[2017-07-28 15:00] VITALS: PULSE 80
[2017-07-28] MEDS: SIMETHICONE 80 MG CHEWABLE TAB PO PRN ×2 (15:03→22:09)
[2017-07-28] MEDS: SODIUM CHLORIDE 0.9% FLUSH 10 ML FLUSH IV FLUSH SCH (21:00)
[2017-07-28 21:07] VITALS: BP 109/71; PULSE 96; RESP 20; TEMP 98.2
[2017-07-29] MEDS: LACTATED RINGER'S 1000 ML INJ 1,000 ML IV SCH (01:57)
[2017-07-29] MEDS: oxyCODONE/ACETAMINOPHEN 5 MG/325 MG TAB PO PRN ×3 (02:10→10:01)
[2017-07-29] MEDS: IBUPROFEN 800 MG TAB PO SCH (05:58)
[2017-07-29] MEDS ORDERED: OXYC1TAB63 PO (08:04)
[2017-07-29] MEDS ORDERED: PERI PO (08:04)
[2017-07-29] MEDS ORDERED: IBUP1TAB7 PO (08:04)
[2017-07-29] MEDS ORDERED: SULF1TAB23 PO (08:04)
--- NOTE | 2017-07-29 08:08 | HHI.DCPOC ---
Discharge Care Plan Diagnosis: (1) UTI (urinary tract infection) (2) delivery delivered Report Symptoms to Your Doctor -Temperature above 100.5 degrees -Redness, of incision or excessive or foul smelling drainage -Unusual pain or calf pain -Increased vaginal bleeding -Painful or difficulty urinating -Feelings of extreme sadness or anxiety after 2 weeks Goals to Promote Your Health * To prevent worsening of your condition and complications * To maintain your health at the optimal level Directions to Meet Your Goals Take your medications as prescribed Follow your dietary instruction Follow activity as directed Ensure plenty of rest for recovery Drink fluids for hydration Keep your appointments as scheduled Take your immunizations and boosters as scheduled If your symptoms worsen call your PCP, if no PCP go to Urgent Care Center or Emergency Room Smoking is Dangerous to Your Health. Avoid second hand smoke Call the 24-hour crisis hotline for domestic abuse at Peter Roy MD R1 Jul 29, 2017 08:08
--- NOTE | 2017-07-29 08:10 | HHI.OB ---
Subjective Remarks Patient is a 22-year-old delivered at 39 weeks and 2 days. Patient is day 3 after . Patient's pain is well-controlled and patient is ambulating much better today. Patient reports eating and drinking without any nausea or vomiting. Patient reports minimal bleeding. Patient has passed gas and bowel movements. Patient is walking without lower extremity pain or shortness of breath. Urinary symptoms improving on Bactrim Objective Vitals/I&O Vital Signs Date Time Temp Pulse Resp B/P (MAP) Pulse Ox O2 Delivery O2 Flow Rate FiO2 07/28/17 21:07 98.2 96 20 109/71 (84) 07/28/17 15:00 80 Objective Remarks GENERAL: Well-nourished, well-developed patient. CARDIOVASCULAR: Tachycardic to the 100's, regular rhythm without murmurs, gallops, or rubs. RESPIRATORY: Breath sounds equal bilaterally. No accessory muscle use. ABDOMEN/GI: Abdomen soft, non-tender. Fundus: Firm, non-tender at umbilicus. GENITOURINARY: Light to moderate bleeding. EXTREMITIES: No cyanosis or edema, non-tender, without signs of DVT. Medications and IVs Current Medications Medications (Trade) Dose Ordered Sig/Anselmo Route Start Time Stop Time Status Last Admin Lactated Ringer's 1,000 ml @ 3,000 mls/hr Q20M PRN IV 07/26/17 00:00 07/26/17 07:41 Sodium Chloride 500 ml @ 1,000 mls/hr ONCE PRN IV 07/26/17 00:00 Sodium Chloride 1,000 ml @ 100 mls/hr Q10H PRN IV 07/26/17 00:20 (Bicitra Liq) 30 ml DATA CONVERSION DEVELOPER PO 07/26/17 00:00 07/29/17 23:59 (Muri-Lube Oil) 10 ml UNSCH PRN TOPICAL 07/26/17 00:00 Fentanyl/ Bupivacaine/ Sodium Chlor 150 ml @ 0 mls/hr TITRATE PRN EPIDURAL 07/26/17 01:15 Oxytocin 500 ml @ 0 mls/hr TITRATE PRN IV 07/26/17 09:15 Lactated Ringer's 1,000 ml @ 150 mls/hr Q6H40M IV 07/26/17 14:40 07/26/17 14:40 Cefazolin Sodium/ Dextrose 50 ml @ 100 mls/hr DATA CONVERSION DEVELOPER IV 07/26/17 15:15 07/30/17 15:14 07/26/17 18:56 (Bicitra Liq) 30 ml DATA CONVERSION DEVELOPER PO 07/26/17 15:45 07/30/17 15:44 (NS Flush) 2 ml BID IV FLUSH 07/26/17 21:00 (NS Flush) 2 ml UNSCH PRN IV FLUSH 07/26/17 15:45 (Mylicon Chew) 80 mg QID PRN PO 07/26/17 15:45 07/28/17 22:09 (Tylenol) 650 mg Q6H PRN PO 07/26/17 15:45 (Rosy-Colace) 2 tab Q12H PRN PO 07/26/17 15:45 07/28/17 22:08 (Ambien) 5 mg HS PRN PO 07/26/17 15:45 (Zofran Odt) 4 mg Q6H PRN PO 07/26/17 15:45 (Percocet 5-325 Mg) 1 tab Q4H PRN PO 07/28/17 10:00 07/29/17 05:58 (Percocet 5-325 Mg) 2 tab Q4H PRN PO 07/28/17 10:00 07/29/17 02:10 (Motrin) 800 mg Q8HR PO 07/28/17 14:00 07/29/17 05:58 (Bactrim Ds 800-160 Mg) 1 tab Q12HR PO 07/28/17 11:00 07/28/17 22:08 Assessment/Plan Assessment and Plan 22 y/o female who is POD# 3 s/p CXN. -Post op H/H decreased at 7.1/22.2. Patient was transfused 2 units with an increase H/H to 9.1/28.4 -UA on admission with large leukocyte esterase, 44 WBC. Cultures growing mixed laney. Started double strength Bactrim p.o. on 07/28. Symptoms improving. Will DC to complete 3 day course -Continue routine care. -Percocet and Motrin PRN pain. -Encouraged OOB. Advised pelvic rest for 6 wks. Will need a f/u appt. in 1 wk for incision check. -Re: will arrange with OB as outpatient -D/c today Peter Roy MD R1 Jul 29, 2017 08:10
[2017-07-29] MEDS: SULFAMETHOXAZOLE-TRIMETHOPRIM DS 800-160 MG TAB PO SCH (10:00)
[2017-07-29] MEDS: DOCUSATE SODIUM 50 MG/SENNA 8.6 MG TAB PO PRN (10:00)
== END 2017-07-29 11:24 | disposition home or self-care (01) | DRG 765 ==
LOC: HOBED 23:40 → H2EB 23:52 → H1EA 07-26 17:30
PROVIDERS: ADMIT Obstetrics & Gynecology; ATTEND Obstetrics & Gynecology
PROC: 10D00Z1 Extraction of Products of Conception, Low, Open Approach (ICD-10-PCS; principal; 2017-07-26)
PROC: 00HU33Z Insertion of Infusion Device into Spinal Canal, Percutaneous Approach (ICD-10-PCS; 2017-07-26)
PROC: 3E0R3BZ Introduction of Anesthetic Agent into Spinal Canal, Percutaneous Approach (ICD-10-PCS; 2017-07-26)
PROC: 30233N1 Transfusion of Nonautologous Red Blood Cells into Peripheral Vein, Percutaneous Approach (ICD-10-PCS; 2017-07-27)
DX: O99.324 Drug use complicating childbirth (principal); O75.3 Other infection during labor; O99.214 Obesity complicating childbirth; E66.9 Obesity, unspecified; F12.90 Cannabis use, unspecified, uncomplicated; O76 Abnormality in fetal heart rate and rhythm complicating labor and delivery; O62.2 Other uterine inertia; R42 Dizziness and giddiness; Z68.38 Body mass index [BMI] 38.0-38.9, adult; Z86.14 Personal history of Methicillin resistant Staphylococcus aureus infection; Z3A.39 39 weeks gestation of pregnancy; Z37.0 Single live birth; Z83.3 Family history of diabetes mellitus
CPT/HCPCS: 36430; 59025; 80307; 81001; 82805; 85014; 85018; 85025; 85027; 85461; 86850; 86900; 86901; 86920; 87070; 87086; 87641; 88307; 90384; 90715; G0481; J0131; J0690; J1885; J2210; J2274; J2370; J2405; J2590; J2790; J3010; J3105; J7120; J7121; P9016